=== PATIENT | male | born 1960 | race Caucasian/White ===

== ENCOUNTER 2016-11-17 15:24 | Inpatient (IN) | payer OTHER, MEDICARE ==
[~2016-11-17] VITALS: Ht 175.3 cm; Wt 65.0 kg
[2016-11-17] VITALS (11 sets, daily range): BP systolic 96–215; BP diastolic 7–93; PULSE 96–117; RESP 12–24; TEMP 99.1; O2SAT 66–100
[~2016-11-17 15:24] MED LIST: CALCIUM CHLORIDE 10% SOLN 1 GRAM/10 ML SYR IV ONE; EPINEPHrine HCL (1:10,000) 1 MG/10 ML SYRINGE IV ONE; SODIUM BICARBONATE 8.4% INJ 50 MEQ/50 ML SYR IV ONE
[2016-11-17] MEDS ORDERED: DOPamine INJ PREMIX 500 ML ONE (15:35)
[2016-11-17 15:41] LABS: HEMATOCRIT 36.6 % (39.0-51.0); MEAN CELL VOLUME 93.2 FL (80.0-100.0); MEAN CORPUSCULAR HEMOGLOBIN 30.7 PG (27.0-34.0); MEAN CORPUSCULAR HGB CONC 32.9 % (32.0-36.0); PLATELET COUNT 272 TH/MM3 (150-450); RED BLOOD COUNT 3.93 MIL/MM3 (4.50-5.90); RED CELL DISTRIBUTION WIDTH 14.9 % (11.6-17.2); WHITE BLOOD COUNT 17.5 TH/MM3 (4.0-11.0)
[2016-11-17 15:43] LABS: CHLORIDE 99 MEQ/L (98-107); HEMO FLAGS AUTO DIFF; SODIUM (NA) 130 MEQ/L (136-145)
[2016-11-17] MEDS ORDERED: SODIUM CHLOR 0.9% 1000 ML INJ 1,000 ML IV ONE ×2 (15:45→16:00)
[2016-11-17 15:46] LABS: ANION GAP 17 MEQ/L (5-15); BICARBONATE 13.9 MEQ/L (21.0-32.0); BLOOD UREA NITROGEN 44 MG/DL (7-18)
[2016-11-17 15:47] LABS: APTT (PATIENT) 36.9 SEC (24.3-30.1); INTERNATIONAL NORMALIZED RATIO 1.1 RATIO
[2016-11-17 15:49] LABS: GLOMERULAR FILTRATION RATE 7 ML/MIN (>89); POTASSIUM 5.2 MEQ/L (3.5-5.1)
[2016-11-17 15:52] LABS: CREATINE KINASE 188 U/L (39-308)
[2016-11-17 16:05] LABS: CKMB 2.3 NG/ML (0.5-3.6)
--- NOTE | 2016-11-17 16:14 | RADRPT ---
EXAM DATE/TIME: 11/17/2016 15:31 [facility] COMPARISON: No previous studies available for comparison. INDICATIONS : Stemi alert. MEDICAL HISTORY : Unobtainable. SURGICAL HISTORY : Unobtainable. ENCOUNTER: Initial ACUITY: 1 day PAIN SCORE: Non-responsive. LOCATION: Bilateral chest FINDINGS: ET tube is in good position. Sternal wires are noted. The heart is minimally large. Mild interstit ial edema is present. The portion of the bony skeleton visualized is unremarkable. CONCLUSION: Previous bypass, cardiomegaly with mild interstitial edema suggesting congestive failure. Jason Sullivan MD FACR on November 17, 2016 at 16:11 Board Certified Radiologist. This report was verified electronically.
--- NOTE | 2016-11-17 16:18 | PD ---
HPI Chief Complaint: STEMI Alert Time Seen by Provider: 15:28 Travel History International Travel<30 days: No Contact w/Intl Traveler<30days: No History of Present Illness HPI This is a Kilo Mendes who was found to be unresponsive by EVAC in agonal breathing and was found to be bradycardic while lying on his couch. As per EVAC, pt was then in PEA arrest and a total of 2 epinephrine given before they got ROSC. Pt was intubated by EVAC and had bilateral and equal breath sounds on arrival. Pt was later found to be a dialysis pt who last had his hemodialysis on Thursday and significant other who came later said he has not been feeling well and had trouble breathing. Pt was in sinus tachycardia and found to have ST segment elevation in V2-V4 and STEMI alert was called. Pt was unresponsive without any sedation. Pupils were fixed and unreactive to light bilaterally. 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 Mcmillan (assistant loan processor). [facility] Social History Tobacco Use: No Allergies-Medications (Allergen,Severity, Reaction): Coded Allergies: Advil (Verified Allergy, Severe, Numbness, 11/17/16) Haldol (Verified Allergy, Severe, Psychosis, 11/17/16) Review of Systems ROS Limitations: Unresponsive Physical Exam Narrative GENERAL: Middle age male unresponsive. SKIN: Focused skin assessment warm/dry. HEAD: Atraumatic. Normocephalic. EYES: Pupils equal at 5mm and unreactive to light bilaterally. ENT: No nasal bleeding or discharge. Mucous membranes pink and moist. NECK: Left neck hematoma. EVAC had attempted EJ IV placement. CARDIOVASCULAR: Tachycardic. RESPIRATORY: Intubated. Breath sounds equal bilaterally. GASTROINTESTINAL: Abdomen soft, nondistended. MUSCULOSKELETAL: Right elbow deformity. NEUROLOGICAL: Unresponsive and not on any sedation. Intubated. Pupils unreactive to light. Data Data Last Documented VS Vital Signs Date Time Temp Pulse Resp B/P Pulse Ox O2 Delivery O2 Flow Rate FiO2 11/17/16 16:00 96 20 117/66 90 Ventilator 11/17/16 15:[address] Brain W/O Iv Contrast(Rout) (11/17/16 ) Chest, Single Ap (11/17/16 ) Complete Blood Count With Diff (11/17/16 15:30) Basic Metabolic Panel (Bmp) (11/17/16 15:30) Troponin I (11/17/16 15:30) Prothrombin Time / Inr (Pt) (11/17/16 15:30) Act Partial Throm Time (Ptt) (11/17/16 15:30) Ckmb (Isoenzyme) Profile (11/17/16 15:30) Sodium Chlor 0.9% 1000 Ml Inj (Ns 1000 M (11/17/16 15:45) Dopamine Inj Premix (Dopamine Inj Premix (11/17/16 15:35) Epinephrine (1:1000) Inj (Adrenalin (1:1 (11/17/16 18:00) Sodium Chlor 0.9% 1000 Ml Inj (Ns 1000 M (11/17/16 16:00) CKMB (11/17/16 15:20) CKMB% (11/17/16 15:20) Labs Laboratory Tests Test 11/17/16 15:20 White Blood Count 17.5 TH/MM3 Red Blood Count 3.93 MIL/MM3 Hemoglobin 12.0 GM/DL Hematocrit 36.6 % Mean Corpuscular Volume 93.2 FL Mean Corpuscular Hemoglobin 30.7 PG Mean Corpuscular Hemoglobin 32.9 % Concent Red Cell Distribution Width 14.9 % Platelet Count 272 TH/MM3 Mean Platelet Volume 8.1 FL Neutrophils (%) (Auto) % Lymphocytes (%) (Auto) % Monocytes (%) (Auto) % Eosinophils (%) (Auto) % Basophils (%) (Auto) % Neutrophils # (Auto) TH/MM3 Lymphocytes # (Auto) TH/MM3 Monocytes # (Auto) TH/MM3 Eosinophils # (Auto) TH/MM3 Basophils # (Auto) TH/MM3 CBC Comment AUTO DIFF Differential Total Cells 100 Counted Neutrophils % (Manual) 62 % Band Neutrophils % 8 % Lymphocytes % 19 % Monocytes % 5 % Eosinophils % 2 % Neutrophils # (Manual) 13.0 TH/MM3 Metamyelocytes 4 % Differential Comment FINAL DIFF MANUAL Atypical Lymphocytes % Platelet Estimate NORMAL Platelet Morphology Comment NORMAL Red Cell Morphology Comment NORMAL Prothrombin Time 12.0 SEC Prothromb Time International 1.1 RATIO Ratio Activated Partial 36.9 SEC Thromboplast Time Sodium Level 130 MEQ/L Potassium Level 5.2 MEQ/L Chloride Level 99 MEQ/L Carbon Dioxide Level 13.9 MEQ/L Anion Gap 17 MEQ/L Blood Urea Nitrogen 44 MG/DL Creatinine 6.50 MG/DL Estimat Glomerular Filtration 7 ML/MIN Rate Random Glucose 235 MG/DL Calcium Level 7.7 MG/DL Total Creatine Kinase 188 U/L Creatine Kinase MB 2.3 NG/ML Troponin I 0.05 NG/ML [facility] Medical Decision Making Medical Screen Exam Complete: Yes Emergency Medical Condition: Yes Differential Diagnosis STEMI vs. PE vs. ICH vs. CVA vs. Hyperkalemia Narrative Course Middle age male with ESRD on HD here post cardiac arrest found to have anterior STEMI. Pt had a right tibia IO and peripheral IV in left hand. Pt was initially a Kilo Mendes so no assistant loan processor was known and STEMI alert was called and discussed case with Dr. Grimes. He accepted the patient but wanted to do a CT brain first to make sure that there is no bleed. Pt was at CT scan when his blood pressure dropped and we lost pulses and started CPR. 1 epinephrine was given and ROSC was obtained. Since we found out that pt was a dialysis patient, he was also given calcium chloride and sodium bicarb to treat potential hyperkalemia as a cause of arrest. Pt also had a episode of bowel movement while in CT scan. Pt was initially placed on dopamine drip while waiting for the epinephrine drip and then was changed to epinephrine drip once it became available. Epinephrine drip was started through right tibia IO. Pt' s pulse oximetry was low in the 80s even though he had bilateral breath sounds that were equal so PEEP was increased to 8. FiO2 is 100%. CXR was reviewed by me and I did not see any pneumothorax and ET tube was in good position above susan and there was no deviation of trachea. Official CXR showed previous bypass, cardiomegaly with mild interstitial edema suggesting congestive failure. CT brain reviewed by me and I do not see any intracranial hemorrhage. Official CT scan later showed no evidence of acute infarct, hemorrhage or edema. I discussed with Dr. Grimes again and we agreed to hold heparin and will transfer pt emergently to [place] label folder and he will decide if pt is stable enough for cardiac cath when he arrives or to start hypothermia protocol instead. I found out from family members who arrived later that pt's assistant loan processor is Dr. Mcmillan. I called Dr. Mcmillan to update him but he is not clearing distribution clerk today and Dr. Thayer is clearing distribution clerk instead so will page him and update him. I also discussed with Dr. Thayer to informed him of Dr. Mcmillan's patient. Sales Representative [employer] also paged but Dr. Casas said he already knows about the patient. Labs reviewed, leukocytosis at 17.5. H/H 12/36.6. K: 5.2, slightly hemolyzed. Troponin 0.05. Glucose 235. Calcium low at 7.7. BUN/creatinine 44 /6.50, pt is on hemodialysis. Pt was accompanied by his nurse during emergent transfer to cardiac label folder in [facility] and on an epinephrine drip. Critical Care Narrative Aggregate critical care time was 50 minutes. Time to perform other separately billable procedures was not included in the critical care time. My time did not include minutes spent treating any other patients simultaneously or on activities that did not directly contribute to the patient's treatment. The services I provided to this patient were to treat and/or prevent clinically significant deterioration that could result in: cardiovascular collapse or . I provided critical care services requiring my management, as noted below: Chart data review, documentation time, medication orders and management, vital sign assessments/reviewing monitor data, ordering and reviewing lab tests, ordering and interpreting/reviewing x-rays and diagnostic studies, care of the patient and discussion of the patient with the admitting physicians. Diagnosis Primary Impression: STEMI (ST elevation myocardial infarction) Qualified Code: I21.3 - ST elevation myocardial infarction (STEMI), unspecified artery Admitting Information Admitting Physician Requests: it Oma Romero DO Nov 17, 2016 16:18
[2016-11-17 16:31] LABS: BANDS 8 % (0-6); EOSINOPHILS 2 % (0-4); METAMYELOCYTES 4 % (0-1); POLYS (SEG NEUTROPHILS) 62 % (16-70); WBC DIFF SAMPLE 100
[2016-11-17 16:33] LABS: PLATELET ESTIMATE SMEAR NORMAL (NORMAL); PLATELET MORPHOLOGY NORMAL (NORMAL); SCAN/DIFF FINAL DIFF MANUAL
--- NOTE | 2016-11-17 16:52 | RADRPT ---
EXAM DATE/TIME: 11/17/2016 15:31 [facility] COMPARISON: No previous studies available for comparison. INDICATIONS : Stemi alert. Altered mental status. Unresponsive. RADIATION DOSE: 63.57 CTDIvol (mGy) MEDICAL HISTORY : Non-responsive. SURGICAL HISTORY : Non-responsive. ENCOUNTER: Initial ACUITY: 1 day PAIN SCALE: Non-responsive LOCATION: cranial TECHNIQUE: Multiple contiguous axial images were obtained of the head. Using automated exposure control and adj ustment of the mA and/or kV according to patient size, radiation dose was kept as low as reasonably a chievable to obtain optimal diagnostic quality images. DICOM format image data is available electro nically for review and comparison. FINDINGS: CEREBRUM: The ventricles are normal for age. No evidence of midline shift, mass lesion, hemorrhage or acute in farction. No extra-axial fluid collections are seen. POSTERIOR FOSSA: The cerebellum and brainstem are intact. The 4th ventricle is midline. The cerebellopontine angle i s unremarkable. EXTRACRANIAL: The visualized portion of the orbits is intact. SKULL: The calvaria is intact. No evidence of skull fracture. CONCLUSION: No evidence of acute infarct, hemorrhage, mass or edema. Immanuel Santos MD on November 17, 2016 at 16:49 Board Certified Radiologist. This report was verified electronically.
[2016-11-17] MEDS ORDERED: EPINEPHrine (1:1000) INJ 2 MG in DEXTROSE 5% IN WATER INJ 248 ML IV SCH ×2 (18:00)
[2016-11-17 18:05] LABS: HEMATOCRIT 36.5 % (39.0-51.0); MEAN CORPUSCULAR HEMOGLOBIN 31.3 PG (27.0-34.0); MEAN CORPUSCULAR HGB CONC 32.9 % (32.0-36.0); PLATELET COUNT 263 TH/MM3 (150-450); RED BLOOD COUNT 3.85 MIL/MM3 (4.50-5.90); RED CELL DISTRIBUTION WIDTH 15.2 % (11.6-17.2); REVIEW FLAG FINAL; WHITE BLOOD COUNT 14.3 TH/MM3 (4.0-11.0)
--- NOTE | 2016-11-17 18:11 | HHI.HP ---
HPI Service Critical Care Medicine Primary Care Physician Allegra Goldman MD Admission Diagnosis STEMI, post cardiac arrest Diagnosis: Travel History International Travel<30 Days: No Contact w/Intl Traveler <30 Da: No Traveled to Known Affected Are: No History of Present Illness HPI This is a Kilo Mendes who was found to be unresponsive by EVAC in agonal breathing and was found to be bradycardic while lying on his cough. As per EVAC, pt was then in PEA arrest and a total of 2 epinephrine given before they got ROSC. Pt was intubated by EVAC and had bilateral and equal breath sounds on arrival. Pt was later found to be a dialysis pt who last had his hemodialysis on Thursday and significant other who came later said he has not been feeling well and had trouble breathing. Pt was in sinus tachycardia and found to have ST segment elevation in V2-V4 and STEMI alert was called. Pt was unresponsive without any sedation. Pupils were fixed and unreactive to light bilaterally. 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 The patient was transported to [facility] as a STEMI alert, seen by Dr. Grimes. The patient was deemed not a candidate for cardiac catheterization nor cooling secondary to unwitnessed initial arrest for unknown duration of time. Critical care medicine was consulted. The patient was transferred to CVICU on epinephrine infusion. Upon admission the patient was noted to have agonal respirations pupils fixed, nonresponsive to painful stimuli. Allergies-Medications (Allergen,Severity, Reaction): Coded Allergies: UNOBTAINABLE (Unverified , 11/17/16) Review of Systems ROS Limitations: Unresponsive Review of Systems ROS Limitations: Clinical Condition Past Family Social History Allergies: Coded Allergies: Advil (Verified Allergy, Severe, Numbness, 11/17/16) Haldol (Verified Allergy, Severe, Psychosis, 11/17/16) Past Medical History Unable to obtain Past Surgical History Right partial foot amputation, left upper extremity AV graft Reported Medications see MAR Active Ordered Medications see MAR Family History Unable to obtain secondary to intubation and clinical condition Social History Unable to obtain Physical Exam Vital Signs Vital Signs Date Time Temp Pulse Resp B/P Pulse Ox O2 Delivery O2 Flow Rate FiO2 11/17/16 17:30 99 Mechanical Ventilator 90 11/17/16 17:24 90 11/17/16 16:00 96 20 117/66 90 Ventilator 11/17/16 15:55 102 20 160/77 Ventilator 11/17/16 15:50 109 20 183/83 82 Ventilator 11/17/16 15:35 117 24 96/47 88 Ventilator 11/17/16 15:30 100 11/17/16 15:30 66 100 11/17/16 15:25 117 24 215/93 82 Ventilator 11/17/16 15:20 82 100 Physical Exam GENERAL: Critically ill-appearing male with mild myoclonic jerks SKIN: Warm and dry. HEAD: Atraumatic. Normocephalic. EYES: Pupils equal and round, nonreactive. No scleral icterus. No injection or drainage. ENT: No nasal bleeding or discharge. Mucous membranes pink and moist. NECK: Trachea midline. No JVD. CARDIOVASCULAR: Normal rate, regular rhythm. Telemetry-sinus rhythm RESPIRATORY: No accessory muscle use. Clear to auscultation. Breath sounds equal bilaterally. Agonal respirations GASTROINTESTINAL: Abdomen soft, non-tender, nondistended. No guarding. MUSCULOSKELETAL: Extremities without clubbing, cyanosis, or edema. No obvious deformities. Left upper extremity AV graft with bruit and thrill NEUROLOGICAL: GCS 3 T. unresponsive. No withdrawal to pain Laboratory Laboratory Tests Test 11/17/16 15:20 White Blood Count 17.5 Red Blood Count 3.93 Hemoglobin 12.0 Hematocrit 36.6 Mean Corpuscular Volume 93.2 Mean Corpuscular Hemoglobin 30.7 Mean Corpuscular Hemoglobin 32.9 Concent Red Cell Distribution Width 14.9 Platelet Count 272 Mean Platelet Volume 8.1 Neutrophils (%) (Auto) Lymphocytes (%) (Auto) Monocytes (%) (Auto) Eosinophils (%) (Auto) Basophils (%) (Auto) Neutrophils # (Auto) Lymphocytes # (Auto) Monocytes # (Auto) Eosinophils # (Auto) Basophils # (Auto) CBC Comment AUTO DIFF Differential Total Cells 100 Counted Neutrophils % (Manual) 62 Band Neutrophils % 8 Lymphocytes % 19 Monocytes % 5 Eosinophils % 2 Neutrophils # (Manual) 13.0 Metamyelocytes 4 Differential Comment FINAL DIFF MANUAL Atypical Lymphocytes Platelet Estimate NORMAL Platelet Morphology Comment NORMAL Red Cell Morphology Comment NORMAL Prothrombin Time 12.0 Prothromb Time International 1.1 Ratio Activated Partial 36.9 Thromboplast Time Sodium Level 130 Potassium Level 5.2 Chloride Level 99 Carbon Dioxide Level 13.9 Anion Gap 17 Blood Urea Nitrogen 44 Creatinine 6.50 Estimat Glomerular Filtration 7 Rate Random Glucose 235 Calcium Level 7.7 Total Creatine Kinase 188 Creatine Kinase MB 2.3 Troponin I 0.05 Result Diagram: 11/17/16 1520 11/17/16 1520 Imaging Last Impressions Head CT 11/17/16 0000 Signed Impressions: Service Date/Time: Thursday, November 17, 2016 15:31 - CONCLUSION: No evidence of acute infarct, hemorrhage, mass or edema. Immanuel Santos MD Chest X-Ray 11/17/16 0000 Signed Impressions: Service Date/Time: Thursday, November 17, 2016 15:31 - CONCLUSION: Previous bypass , cardiomegaly with mild interstitial edema suggesting congestive failure. Jason Sullivan MD FACR Septic Shock Reassessment Lungs: Crackles Peripheral Pulses: Bounding Right Radial Bounding Left Radial Assessment and Plan Assessment and Plan Assessment Postcardiac arrest (Unwitnessed) PEA arrest Anoxic brain injury ? End-stage renal disease Bandemia Leukocytosis Plan Plan by systems: Neurologic: -Obtain stat EEG -Neurology consulted -Urine tox screen -Obtain Tylenol level -11/17 CT brain-no acute infarct Respiratory: -Mechanical ventilation maintain sat greater than 92% currently on /6 FiO2 100% -Obtain ABG -Wean FiO2 to maintain O2 sat greater than 92% -Ventilator bundle -Bronchodilators Cardiovascular: -Cardiology Dr. Grimes- patient deemed not a candidate for heart catheterization nor hypothermic cooling -Epinephrine infusion, weaned to maintain a MAP greater than 65mmHG -Follow-up troponin levels -Initiate heparin infusion Renal: -Nephrology consult, hemodialysis per nephrology -Bladder scan -- Strict I/Os FEN/GI: -Obtain stat CMP -Monitor electrolytes -Gentle hydration normal saline at 42 cc/hour -Obtain creatinine kinase level -Insert OGT, LIWS -Zofran for nausea -Pepcid GI prophylaxis Heme/ID: -Blood cultures 2 - Urine Culture if possible -Obtain sputum culture -Obtain /trend Lactic acid levels -Empiric antibiotics instituted vancomycin and cefepime Endocrine: Glucose monitoring per ICU protocol -- SSI Prophylaxis: GI Prophylaxis Pepcid twice a day DVT Prophylaxis -- SCDs Lines: Peripheral IVs 2 Dispo: This patient remains critically ill with one or more organ systems which are or may become a threat to life. I have spent in excess of 35 minutes discontinuously in the care and management of this patient. This time is exclusive of procedures, and includes, but is not limited to, evaluation of the patient, review of the medical record, discussions with family, consultants, nursing staff, or respiratory therapy, and documentation in the medical record. Code Status FULL Discussed Condition With Dr. Grimes, Family and REGIONAL COORDINATOR at bedside Dai Curry MD Nov 17, 2016 18:11
[2016-11-17] MEDS: SODIUM CHLOR 0.9% 1000 ML INJ 1,000 ML IV SCH (18:12)
[2016-11-17] MEDS ORDERED: CHLORHEXIDINE GLUCONATE 2 % 1 PACK (2 CLOTHS) TOP PRN (18:15)
[2016-11-17] MEDS ORDERED: SODIUM CHLORIDE 0.9% FLUSH 10 ML FLUSH IV FLUSH PRN ×2 (18:15→19:30)
[2016-11-17] MEDS ORDERED: RESP: ALBUTEROL 2.5 MG/IPRATROPIUM 0.5 MG NEB (PRN) INH (18:15)
[2016-11-17] MEDS ORDERED: MISCELLANEOUS NURSING INFORMATION XX SCH (18:15)
[2016-11-17] MEDS ORDERED: LACTULOSE SYRUP 20 GM/30 ML CUP PO PRN (18:15)
[2016-11-17] MEDS ORDERED: HEPARIN-D5W INJ 250 ML IV SCH (18:15)
[2016-11-17 18:27] LABS: ACETAMINOPHEN 7.3 MCG/ML (10.0-30.0); ALT (GPT) 38 U/L (12-78); ANION GAP 17 MEQ/L (5-15); AST (GOT) 37 U/L (15-37); BICARBONATE 17.8 MEQ/L (21.0-32.0); BLOOD UREA NITROGEN 43 MG/DL (7-18); CHLORIDE 96 MEQ/L (98-107); GLOMERULAR FILTRATION RATE 9 ML/MIN (>89); MAGNESIUM 2.7 MG/DL (1.5-2.5); POTASSIUM 4.7 MEQ/L (3.5-5.1); SODIUM (NA) 131 MEQ/L (136-145)
[2016-11-17 18:30] LABS: ALKALINE PHOSPHATASE 110 U/L (45-117); TOTAL BILIRUBIN ADULT 0.6 MG/DL (0.2-1.0)
[2016-11-17] MEDS ORDERED: Vancomycin Consult Pharmacy 1 EA OTHER SCH (18:30)
[2016-11-17 18:40] LABS: INTERNATIONAL NORMALIZED RATIO 1.1 RATIO; PROTHROMBIN TIME - PATIENT 12.5 SEC (9.8-11.6)
[2016-11-17] MEDS ORDERED: VANCOMYCIN 1,000 MG/NS 250 ML IV ONE ×2 (19:00)
[2016-11-17] MEDS ORDERED: ACETAMINOPHEN 325 MG TAB PO PRN ×2 (19:00→19:30)
[2016-11-17] MEDS ORDERED: BISACODYL 10 MG SUPP RECTAL PRN (19:00)
[2016-11-17] MEDS ORDERED: SODIUM BICARBONATE 8.4% INJ 50 ML ONE (19:06)
[2016-11-17] MEDS ORDERED: CISATRACURIUM BESYLATE 200 MG/20 ML VIAL IV ONE ×2 (19:15→19:30)
[2016-11-17] MEDS ORDERED: SODIUM BICARBONATE 8.4% INJ 50 MEQ/50 ML SYR IV PUSH ONE (19:15)
[2016-11-17] MEDS ORDERED: DEXTROSE 50% IN WATER 50 ML VIAL(D50) IV PUSH PRN (19:15)
[2016-11-17 19:17] LABS: APTT (PATIENT) 33.6 SEC (24.3-30.1)
[2016-11-17] MEDS ORDERED: SODIUM CHLOR 0.9% 1000 ML INJ 1,000 ML IV PRN ×3 (19:25)
[2016-11-17 19:26] LABS: AMPHETAMINE, URINE NEG (NEG); BARBITURATES, URINE NEG (NEG); COCAINE, URINE NEG (NEG)
--- NOTE | 2016-11-17 19:26 | PD.PROCEDR ---
Procedure Note Procedure Procedure: Arterial Line Placement Status post STEMI Diagnosis: Cardiac arrest Indications: Same Consent: Emergent Description of the Procedure: The right wrist was prepped and draped sterilely. 1% lidocaine was used for local anesthesia. The pulse was located and a needle was advanced into the artery. A 20-gauge gauge, 1.34cm catheter was advanced into the artery using a modified Seldinger technique. The catheter was sutured to the skin and a sterile dressing was applied. The catheter was connected to a pressure transducer and an arterial waveform was noted. There were no immediate complications noted. There was minimal EBL. I personally performed the procedure. Dai Curry MD Nov 17, 2016 19:26
[2016-11-17] MEDS ORDERED: MANNITOL 12.5 GM/50 ML VIAL IV PRN (19:30)
[2016-11-17] MEDS ORDERED: NITROGLYCERIN 0.4 MG SL 25 TABS/BTL SL PRN (19:30)
[2016-11-17] MEDS ORDERED: ALBUMIN HUMAN 25% 25 GM/100 ML BAGP IV PRN (19:30)
[2016-11-17] MEDS ORDERED: ONDANSETRON HCL 4 MG/2 ML VIAL IV PRN (19:30)
[2016-11-17] MEDS ORDERED: cloNIDine HCL 0.1 MG TAB PO PRN (19:30)
[2016-11-17] MEDS ORDERED: diphenhydrAMINE HCL 25 MG CAP PO PRN (19:30)
[2016-11-17] MEDS ORDERED: GENTAMICIN SULFATE (DIALYSIS USE ONLY) 20 MG/2 ML VIAL IV PRN (19:30)
[2016-11-17] MEDS ORDERED: HEPARIN SODIUM - IV 10,000 UNITS/10 ML VIAL PRN (19:30)
[2016-11-17] MEDS ORDERED: HEPARIN SODIUM - IV 10,000 UNITS/10 ML VIAL IVF PRN (19:30)
[2016-11-17] MEDS ORDERED: GELATIN 12 MM/7 MM FOAM TOP PRN (19:30)
[2016-11-17 19:53] LABS: LACTIC ACID GHOST NOT REPORTABLE
[2016-11-17] MEDS: INSULIN NovoLIN REGULAR SUPPLEMENTAL SCALE SQ SCH (20:30)
[2016-11-17] MEDS: RESP: ALBUTEROL 2.5 MG/IPRATROPIUM 0.5 MG NEB (SCH) INH (20:57)
[2016-11-17 20:59] LABS: CREATINE KINASE 159 U/L (39-308)
[2016-11-17] MEDS: DOCUSATE SODIUM 50 MG/SENNA 8.6 MG TAB PO SCH (21:00)
[2016-11-17] MEDS ORDERED: SENNOSIDES 8.6 MG TAB PO PRN (21:00)
[2016-11-17] MEDS ORDERED: MAGNESIUM HYDROXIDE SUSP 30 ML CUP PO PRN (21:00)
[2016-11-17 21:34] LABS: BLOOD GAS CARBOXYHEMOGLOBIN 1.2 % (0-4); BLOOD GAS HCO3 15 mmol/L (22-26); BLOOD GAS METHEMOGLOBIN 1.7 % (0-2); BLOOD GAS O2 HGB SATURATION 96 % (90-100); BLOOD GAS OXYGEN CONTENT 14.7 Vol % (12.0-20.0); BLOOD GAS PCO2 29 mmHg (38-42); BLOOD GAS PO2 207 mmHg (61-120); BLOOD GAS TOTAL HGB 10.5 G/DL (12.0-16.0); TEMP CORR TO 98.6
[2016-11-17 21:35] LABS: CRITICAL VALUE YES; DRAW SITE ART LINE; FIO2 70 %; OXYGEN DEVICE VENTILATOR; STAT NO; VENT SETTINGS 500/12/PEEP 6
[2016-11-17] MEDS: CEFEPIME INJ 2,000 MG in SODIUM CHLORIDE 0.9% INJ 100 ML IV SCH (21:57)
[2016-11-17] MEDS: SODIUM BICARBONATE 8.4% INJ 150 MEQ in SODIUM CHLOR 0.9% 1000 ML INJ 850 ML IV SCH (21:58)
[2016-11-17] MEDS: CHLORHEXIDINE 0.12% (ORAL KIT) 15 ML CUP MT SCH (21:58)
[2016-11-17] MEDS: FAMOTIDINE 20 MG/2 ML VIAL IV PUSH SCH (22:43)
[2016-11-17] MEDS: SODIUM CHLORIDE 0.9% FLUSH 10 ML FLUSH IV FLUSH SCH (22:43)
[2016-11-17] MEDS ORDERED: NITROGLYCERIN 2% OINT 1 GM PACKET TOPICAL PRN (23:30)
[2016-11-17] MEDS ORDERED: LABETALOL HCL 100 MG/20 ML VIAL IV PUSH PRN (23:30)
[2016-11-17] MEDS ORDERED: fentaNYL DRIP 250 ML IV SCH (23:30)
[2016-11-18] VITALS (13 sets, daily range): BP systolic 115–175; BP diastolic 54–83; PULSE 72–93; RESP 14–31; TEMP 99.9–102.1; O2SAT 95–99
[2016-11-18] MEDS: PROPOFOL 1000 MG/100 ML INJ 100 ML IV SCH ×5 (00:06→23:41)
[2016-11-18 02:28] LABS: APTT (PATIENT) 46.3 SEC (24.3-30.1)
[2016-11-18] MEDS: INSULIN NovoLIN REGULAR SUPPLEMENTAL SCALE SQ SCH ×4 (03:00→19:15)
[2016-11-18] MEDS: CHLORHEXIDINE GLUCONATE 2 % 1 PACK (2 CLOTHS) TOP SCH (03:05)
[2016-11-18] MEDS: RESP: ALBUTEROL 2.5 MG/IPRATROPIUM 0.5 MG NEB (SCH) INH ×4 (03:32→21:58)
--- NOTE | 2016-11-18 05:07 | RADRPT ---
EXAM DATE/TIME: 11/18/2016 04:02 [facility] COMPARISON: CHEST SINGLE AP, November 17, 2016, 15:31. INDICATIONS : Respiratory disease. MEDICAL HISTORY : Unobtainable. SURGICAL HISTORY : Unobtainable. ENCOUNTER: Subsequent ACUITY: 2 days PAIN SCORE: Non-responsive. LOCATION: Bilateral chest FINDINGS: Aeration of both lungs though persistent consolidation remains in the left lower lobe and right lung base. Median sternotomy wires are noted, cardiomegaly. Endotracheal tube in satisfactory position. NG tube side-port at the distal esophagus, distal tip at the esophagogastric junction. There is nodular consolidation at the right lower lobe and a 1.7 cm nodule is present. CONCLUSION: Bilateral consolidation decreased since the previous study. Right lung base nodule suspected. NG tube should be advanced. Garry Dykes MD on November 18, 2016 at 5:04 Board Certified Radiologist. This report was verified electronically.
[2016-11-18 05:18] LABS: BLOOD GAS BASE EXCESS -3.9 mmol/L (-2-2); BLOOD GAS CARBOXYHEMOGLOBIN 1.4 % (0-4); BLOOD GAS HCO3 19 mmol/L (22-26); BLOOD GAS METHEMOGLOBIN 1.7 % (0-2); BLOOD GAS O2 HGB SATURATION 95 % (90-100); BLOOD GAS OXYGEN CONTENT 13.4 Vol % (12.0-20.0); BLOOD GAS PCO2 28 mmHg (38-42); BLOOD GAS PO2 121 mmHg (61-120); BLOOD GAS TOTAL HGB 9.9 G/DL (12.0-16.0); CRITICAL VALUE NO; DRAW SITE ART LINE; FIO2 30 %; OXYGEN DEVICE VENTILATOR; STAT NO; TEMP CORR TO 98.6; VENT SETTINGS PRVC/AC
[2016-11-18 05:45] LABS: BICARBONATE 22.8 MEQ/L (21.0-32.0); MAGNESIUM 2.3 MG/DL (1.5-2.5); POTASSIUM 4.3 MEQ/L (3.5-5.1)
[2016-11-18 06:31] LABS: CKMB 18.4 NG/ML (0.5-3.6)
--- NOTE | 2016-11-18 06:53 | MB ---
cc: ROSITA LIVINGSTON DATE OF CONSULTATION 11/17/2016 INDICATION Cardiac arrest HISTORY OF PRESENT ILLNESS This is an unknown male who presented to the emergency department in [place] after his found him at home unresponsive on the couch. The patient essentially had an unwitnessed arrest. He was down for an unknown period time, came home and noted that he was seen to be in somewhat of an agonal type breathing and called EVAC. Upon EMS arrival, he was noted to be in PEA arrest, was given epinephrine and they were able to get a pulse. The patient had no spontaneous movements. He was intubated. Apparently he has history of end-stage renal disease on hemodialysis, had not been feeling well up until recently. His electrocardiogram did show some poor R-wave progression with some ST elevation in the early precordial leads. He went through the CT scan of the head at [place] which was unremarkable, but he is not withdrawing to any painful stimuli. His pupils were fixed and dilated nonreactive to light. Because of the electrocardiogram, he was sent over for consideration of revascularization. PAST HISTORY Unknown ALLERGIES Unknown REVIEW OF SYSTEMS Unresponsive PHYSICAL EXAMINATION The patient is intubated, unresponsive, pupils are dilated and fixed. CARDIOVASCULAR: Tachycardia. No rubs or gallops. RESPIRATORY: Equal bilaterally. ABDOMEN: Exam is soft. NEUROLOGIC: Does not withdraw to painful stimuli. No spontaneous movements. LABS WBC 17.5, hemoglobin 12, platelet count 272, INR is 1. Sodium 130, potassium 5.2, BUN is 44, creatinine 6.5, troponin 0.05. ASSESSMENT 1. PEA arrest 2. Questionable ST-elevation PA 3. End-stage renal disease. The patient is currently in critical condition. Neurologically appears to have severe anoxic brain injury without any spontaneous movements. Does not withdraw to painful stimuli. In the CT scanner at [place], he had another hypotensive episode with an episode of hypoxia. At this point, I do not think cardiac catheterization is going to alter the course of this gentleman's recovery since his electrocardiogram is not classic for tombstone ST elevation and his major limiting factor is going to be neurologic recovery. I discussed the case with Dr. Curry the signal constructor. He does not appear to be a candidate for hypothermia protocol. For right now, we will continue with supportive measures, have a talk with the family and watch over the next 24 hours for any neurologic recovery. We will also get neurology involved for EEG to see if there is documented anoxic injury. MD ALEXANDRIA Ortiz/LEA /4:56 PM /6:39 AM
[2016-11-18] MEDS: CHLORHEXIDINE 0.12% (ORAL KIT) 15 ML CUP MT SCH ×4 (08:00→23:36)
--- NOTE | 2016-11-18 08:33 | MG ---
cc: KRISTAL GONSALEZ M.D. Lab No: Date: 11/17/2016 Age: 56 Sex: M Race: ___ INDICATIONS A stat EEG was obtained on this 56-year-old. The patient is intubated. No sedation. The Nimbex was given 3-4 minutes into the EEG for muscle and head movement. DESCRIPTION The EEG initially shows a lot of muscle artifact with an occasional bursts of high amplitude theta/delta activity maximum anteriorly. As the patient became quieter, after the Nimbex, head rocking movement is still described and the background is then represented by markedly low amplitude activity with very occasional bursts of activity lasting a second or so. It might take over a minute before another burst of activity is noted. Photic stimulation disclosed no significant change. INTERPRETATION Markedly abnormal EEG because of rare bursts of higher amplitude delta and theta activity maximum frontally superimposed in a background of markedly low amplitude rhythms. After Nimbex was given, the muscle artifact had dissipated. The EEG findings suggest a markedly severe diffuse disturbance of cerebral function, possible anoxic brain injury, clinical and imaging correlation. No ictal activity present. I attempted to call the intensive care unit to provide a verbal report, but the reaching the staff was not successful. MD JOSE ANTONIO Peguero/LEA /7:37 PM /8:23 AM
--- NOTE | 2016-11-18 08:38 | PD.CARD.PN ---
Subjective Subjective Remarks Intubated. Sedated. Objective Medications Item Value Date Time Nitroglycerin 2 inch 11/17/160 (Nitroglycerin Q6HR PRN/TOPICAL 2% Oint) Hydralazine HCl 10 mg 11/17/16 2330 (Apresoline Inj) Q1HR PRN/IV PUSH Labetalol HCl 10 mg 11/17/16 2330 (Trandate Inj) Q1HR PRN/IV PUSH Heparin Sodium/ 250 ml @ 0 mls/hr 11/17/16 181 Dextrose TITRATE/IV 11/17/16 183 Vital Signs / I&O Vital Signs Date Time Temp Pulse Resp B/P Pulse Ox O2 Delivery O2 Flow Rate FiO2 11/18/16 04:00 30 11/18/16 04:00 72 11/18/16 04:00 99 Mechanical Ventilator 30 11/18/16 04:00 100.3 72 22 115/63 99 144/66 11/18/16 03:34 99 30 11/18/16 01:30 30 11/18/16 00:30 99 30 11/18/16 00:00 101.1 89 31 174/83 99 175/73 11/18/16 00:00 30 11/18/16 00:00 88 11/18/16 00:00 99 Mechanical Ventilator 30 11/17/16 23:00 30 11/17/16 22:00 50 11/17/16 21:30 60 11/17/16 21:00 70 11/17/16 20:55 100 70 11/17/16 20:00 96 11/17/16 20:00 80 11/17/16 20:00 99 Mechanical Ventilator 80 11/17/16 20:00 99.1 97 12 136/74 99 163/54 11/17/16 19:55 99 80 11/17/16 17:30 99 Mechanical Ventilator 90 11/17/16 17:24 90 11/17/16 16:40 97 100 11/17/16 16:00 96 20 117/66 90 Ventilator 11/17/16 15:55 102 20 160/77 Ventilator 11/17/16 15:50 109 20 183/83 82 Ventilator 11/17/16 15:35 117 24 96/47 88 Ventilator 11/17/16 15:30 100 11/17/16 15:30 66 100 11/17/16 15:25 117 24 215/93 82 Ventilator 11/17/16 15:20 82 100 I/O 11/17/16 11/17/16 11/17/16 11/18/16 11/18/16 11/18/16 07:00 15:00 23:00 07:00 15:00 23:00 Intake Total 1385 ml Output Total 201 ml 135 ml Balance -201 ml 1250 ml Intake Oral 0 ml IV Total 1385 ml Output Urine Total 200 ml 85 ml Stool Total 1 ml Gastric Drainage Total 50 ml # Bowel Movements 1 Physical Exam GENERAL: Well developed, thin. Intubated. Sedated. HEENT: Jugular venous pressure is normal. CHEST: Lungs clear to auscultation anteriorly. CARDIAC: Regular rate and rhythm without S3, S4. I-II/ systolic murmur apex, LLSB. ABDOMEN: Soft, no hepatosplenomegaly. Bowel sounds present. EXTREMITIES: No clubbing, cyanosis, or edema. Laboratory Laboratory Tests Test 11/17/16 11/17/16 11/17/16 11/17/16 15:20 17:45 18:15 20:18 White Blood Count 17.5 TH/MM3 14.3 TH/MM3 Red Blood Count 3.93 MIL/MM3 3.85 MIL/MM3 Hemoglobin 12.0 GM/DL 12.0 GM/DL Hematocrit 36.6 % 36.5 % Mean Corpuscular Volume 93.2 FL 95.0 FL Mean Corpuscular Hemoglobin 30.7 PG 31.3 PG Mean Corpuscular Hemoglobin 32.9 % 32.9 % Concent Red Cell Distribution Width 14.9 % 15.2 % Platelet Count 272 TH/MM3 263 TH/MM3 Mean Platelet Volume 8.1 FL 8.0 FL Neutrophils (%) (Auto) % Lymphocytes (%) (Auto) % Monocytes (%) (Auto) % Eosinophils (%) (Auto) % Basophils (%) (Auto) % Neutrophils # (Auto) TH/MM3 Lymphocytes # (Auto) TH/MM3 Monocytes # (Auto) TH/MM3 Eosinophils # (Auto) TH/MM3 Basophils # (Auto) TH/MM3 CBC Comment AUTO DIFF Differential Total Cells 100 Counted Neutrophils % (Manual) 62 % Band Neutrophils % 8 % Lymphocytes % 19 % Monocytes % 5 % Eosinophils % 2 % Neutrophils # (Manual) 13.0 TH/MM3 Metamyelocytes 4 % Differential Comment FINAL DIFF MANUAL Atypical Lymphocytes % Platelet Estimate NORMAL Platelet Morphology Comment NORMAL Red Cell Morphology Comment NORMAL Prothrombin Time 12.0 SEC 12.5 SEC Prothromb Time International 1.1 RATIO 1.1 RATIO Ratio Activated Partial 36.9 SEC 33.6 SEC Thromboplast Time Sodium Level 130 MEQ/L 131 MEQ/L Potassium Level 5.2 MEQ/L 4.7 MEQ/L Chloride Level 99 MEQ/L 96 MEQ/L Carbon Dioxide Level 13.9 MEQ/L 17.8 MEQ/L Anion Gap 17 MEQ/L 17 MEQ/L Blood Urea Nitrogen 44 MG/DL 43 MG/DL Creatinine 6.50 MG/DL 6.54 MG/DL Estimat Glomerular Filtration 7 ML/MIN 9 ML/MIN Rate Random Glucose 235 MG/DL 280 MG/DL Calcium Level 7.7 MG/DL 8.1 MG/DL Total Creatine Kinase 188 U/L 159 U/L Creatine Kinase MB 2.3 NG/ML Troponin I 0.05 NG/ML Lactic Acid Level 6.0 mmol/L 4.0 mmol/L Phosphorus Level 8.7 MG/DL Magnesium Level 2.7 MG/DL Total Bilirubin 0.6 MG/DL Aspartate Amino Transf 37 U/L (AST/SGOT) Alanine Aminotransferase 38 U/L (ALT/SGPT) Alkaline Phosphatase 110 U/L B-Type Natriuretic Peptide 2504 PG/ML Total Protein 7.1 GM/DL Albumin 3.6 GM/DL Acetaminophen Level 7.3 MCG/ML Urine Opiates Screen NEG Urine Barbiturates Screen NEG Urine Amphetamines Screen NEG Urine Benzodiazepines Screen NEG Urine Cocaine Screen NEG Urine Cannabinoids Screen POS Test 11/17/16 11/17/16 11/18/16 11/18/16 21:20 22:50 01:45 04:30 Blood Gas Puncture Site ART LINE Blood Gas Patient Temperature 98.6 Blood Gas HCO3 15 mmol/L Blood Gas Base Excess -10.0 mmol/L Blood Gas Oxygen Saturation 96 % Arterial Blood pH 7.33 Arterial Blood Partial 29 mmHg Pressure CO2 Arterial Blood Partial 207 mmHg Pressure O2 Arterial Blood Oxygen Content 14.7 Vol % Arterial Blood 1.2 % Carboxyhemoglobin Arterial Blood Methemoglobin 1.7 % Blood Gas Hemoglobin 10.5 G/DL Oxygen Delivery Device VENTILATOR Blood Gas Ventilator Setting 500/12/PEEP 6 Blood Gas Inspired Oxygen 70 % Nasal Screen MRSA (PCR) MRSA NOT DETECTED Activated Partial 46.3 SEC Thromboplast Time Sodium Level 138 MEQ/L Potassium Level 4.3 MEQ/L Chloride Level 100 MEQ/L Carbon Dioxide Level 22.8 MEQ/L Anion Gap 15 MEQ/L Blood Urea Nitrogen 56 MG/DL Creatinine 7.08 MG/DL Estimat Glomerular Filtration 8 ML/MIN Rate Random Glucose 184 MG/DL Calcium Level 7.5 MG/DL Phosphorus Level 4.3 MG/DL Magnesium Level 2.3 MG/DL Total Creatine Kinase 579 U/L Creatine Kinase MB 18.4 NG/ML Creatine Kinase MB % 3.2 % Test 11/18/16 05:10 Blood Gas Puncture Site ART LINE Blood Gas Patient Temperature 98.6 Blood Gas HCO3 19 mmol/L Blood Gas Base Excess -3.9 mmol/L Blood Gas Oxygen Saturation 95 % Arterial Blood pH 7.46 Arterial Blood Partial 28 mmHg Pressure CO2 Arterial Blood Partial 121 mmHg Pressure O2 Arterial Blood Oxygen Content 13.4 Vol % Arterial Blood 1.4 % Carboxyhemoglobin Arterial Blood Methemoglobin 1.7 % Blood Gas Hemoglobin 9.9 G/DL Oxygen Delivery Device VENTILATOR Blood Gas Ventilator Setting PRVC/AC Blood Gas Inspired Oxygen 30 % Assessment and Plan Problem List: (1) CAD (coronary artery disease) Assessment and Plan: History of CABG 2006. Status post probable anterior STEMI yesterday treated conservatively by Dr. Grimes due to poor neurological status. Stable overnight. Repeat EKG pending. Cardiac enzymes suggestive of acute GA. His bypass grafts, including a TABOR to the LAD, were widely patent on cath 2013. REC daily aspirin continue heparin drip check echo beta narciso, TORY-I as BP's tolerate (2) Ischemic cardiomyopathy Assessment and Plan: EF 45% by echo last year. Echo pending. CHF suggested on admission CXR. Rec diuretic therapy. Rec beta narciso, TORY-I as BP's tolerate. Code Status full code Problem Qualifiers (1) CAD (coronary artery disease): Qualified Code: I25.10 - Coronary artery disease involving navajo coronary artery of navajo heart, angina presence unspecified Javier Mcmillan MD Nov 18, 2016 08:38
[2016-11-18 08:41] LABS: APTT (PATIENT) 50.4 SEC (24.3-30.1)
[2016-11-18 08:43] LABS: AUTOMATED NEUTROPHIL # 16.1 TH/MM3 (1.8-7.7); BASOPHIL % 0.1 % (0.0-2.0); HEMATOCRIT 29.5 % (39.0-51.0); HEMO FLAGS DIFF FINAL; LYMPH % 2.4 % (9.0-44.0); LYMPHOCYTE # 0.4 TH/MM3 (1.0-4.8); MEAN CELL VOLUME 92.8 FL (80.0-100.0); MEAN CORPUSCULAR HGB CONC 32.4 % (32.0-36.0); NEUT % 93.5 % (16.0-70.0); PLATELET COUNT 154 TH/MM3 (150-450); RED BLOOD COUNT 3.18 MIL/MM3 (4.50-5.90); RED CELL DISTRIBUTION WIDTH 14.7 % (11.6-17.2); WHITE BLOOD COUNT 17.2 TH/MM3 (4.0-11.0)
[2016-11-18] MEDS: hydrALAZINE HCL 20 MG/ML VIAL IV PUSH PRN (08:43)
[2016-11-18] MEDS ORDERED: PILL SPLITTER OTHER PRN (08:45)
--- NOTE | 2016-11-18 08:53 | HHI.CCPN ---
Subjective Remarks/Hospital Course This is a Kilo Mendes who was found to be unresponsive by EVAC in agonal breathing and was found to be bradycardic while lying on his cough. As per EVAC, pt was then in PEA arrest and a total of 2 epinephrine given before they got ROSC. Pt was intubated by EVAC and had bilateral and equal breath sounds on arrival. Pt was later found to be a dialysis pt who last had his hemodialysis on Thursday and significant other who came later said he has not been feeling well and had trouble breathing. Pt was in sinus tachycardia and found to have ST segment elevation in V2-V4 and STEMI alert was called. Pt was unresponsive without any sedation. Pupils were fixed and unreactive to light bilaterally. 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 The patient was transported to [facility] as a STEMI alert, seen by Dr. Grimes. The patient was deemed not a candidate for cardiac catheterization nor cooling secondary to unwitnessed initial arrest for unknown duration of time. Critical care medicine was consulted. The patient was transferred to CVICU on epinephrine infusion. Upon admission the patient was noted to have agonal respirations pupils fixed, nonresponsive to painful stimuli. Subjective: 11/18: Tmax 101.1 Hemodynamically stable. Sinus tachycardia resolved. Epinephrine weaned off last evening. The patient remains encephalopathic. Continued myoclonic jerking. EEG results revealed possible anoxic brain injury. Neurology consulted appreciate recommendations. Palliative care has been consulted. The patient was placed on low-dose propofol/fentanyl for ventilator synchrony. Nephrology was consulted patient possibly for dialysis today. Patient continues on heparin infusion, the patient was noted to be Hemoccult positive will monitor CBC and discontinue. Objective Vital Signs Date Time Temp Pulse Resp B/P Pulse Ox O2 Delivery O2 Flow Rate FiO2 11/18/16 04:00 30 11/18/16 04:00 72 11/18/16 04:00 99 Mechanical Ventilator 11/18/16 04:00 100.3 22 115/63 144/66 Intake and Output 11/17/16 11/17/16 11/18/16 08:00 16:00 00:00 Output Total 201 ml Balance -201 ml Result Diagram: 11/17/16 7391 11/18/16 0705 Other Results Microbiology Date/Time Procedure Status Source Growth 11/18/16 01:45 Stool Occult Blood (CANDIE) - Final Complete Stool Stool HEMOCCULT POSITIVE Laboratory Tests Test 11/17/16 11/18/16 21:20 05:10 Blood Gas Puncture Site ART LINE ART LINE Blood Gas Patient Temperature 98.6 98.6 Blood Gas HCO3 15 mmol/L 19 mmol/L (22-26) (22-26) Blood Gas Base Excess -10.0 mmol/L -3.9 mmol/L (-2-2) (-2-2) Blood Gas Oxygen Saturation 96 % (90-100) 95 % (90-100) Arterial Blood pH 7.33 7.46 (7.380-7.420) (7.380-7.420) Arterial Blood Partial 29 mmHg (38-42) 28 mmHg (38-42) Pressure CO2 Arterial Blood Partial 207 mmHg 121 mmHg Pressure O2 (61-120) (61-120) Arterial Blood Oxygen Content 14.7 Vol % 13.4 Vol % (12.0-20.0) (12.0-20.0) Arterial Blood 1.2 % (0-4) 1.4 % (0-4) Carboxyhemoglobin Arterial Blood Methemoglobin 1.7 % (0-2) 1.7 % (0-2) Blood Gas Hemoglobin 10.5 G/DL 9.9 G/DL (12.0-16.0) (12.0-16.0) Oxygen Delivery Device VENTILATOR VENTILATOR Blood Gas Ventilator Setting 500/12/PEEP 6 PRVC/AC Blood Gas Inspired Oxygen 70 % 30 % Imaging Last Impressions Head CT 11/17/16 0000 Signed Impressions: Service Date/Time: Thursday, November 17, 2016 15:31 - CONCLUSION: No evidence of acute infarct, hemorrhage, mass or edema. Immanuel Santos MD Chest X-Ray 11/17/16 0000 Signed Impressions: Service Date/Time: Thursday, November 17, 2016 15:31 - CONCLUSION: Previous bypass , cardiomegaly with mild interstitial edema suggesting congestive failure. Jason Sullivan MD FACR Objective Remarks GENERAL: Critically ill-appearing male with mild myoclonic jerks SKIN: Warm and dry. HEAD: Atraumatic. Normocephalic. EYES: Pupils equal and round, nonreactive, 3 mm. No scleral icterus. No injection or drainage. ENT: No nasal bleeding or discharge. Mucous membranes pink and moist. NECK: Trachea midline. No JVD. CARDIOVASCULAR: Normal rate, regular rhythm. Telemetry-sinus rhythm RESPIRATORY: No accessory muscle use. Clear to auscultation. Breath sounds equal bilaterally. Agonal respirations GASTROINTESTINAL: Abdomen soft, non-tender, nondistended. No guarding. MUSCULOSKELETAL: Extremities without clubbing, cyanosis, or edema. No obvious deformities. Left upper extremity AV graft with bruit and thrill NEUROLOGICAL: GCS 3 T. unresponsive. No withdrawal to pain. No lid or gag reflex Urinary Catheter: Yes Payne insert reason: Measure Accurate Output Date of Insertion: Nov 17, 2016 A/P Assessment and Plan Assessment Postcardiac arrest (Unwitnessed) PEA arrest Anoxic brain injury ? End-stage renal disease Bandemia Leukocytosis Substance abuse Plan Neurologic: -11/17- EEG-markedly abnormal EEG, severe diffuse disturbance of cerebral function. Possible anoxic brain injury -Neurology consulted-appreciate recommendations -Urine tox screen- positive for Cannabinoids -11/17 CT brain-no acute infarct Respiratory: -Mechanical ventilation maintain sat greater than 92% currently on 500/6 FiO2 50 -11/18 ABG-7.46/28/121/19/-3, decrease ventilator rate -Wean FiO2 to maintain O2 sat greater than 92% -Ventilator bundle -Bronchodilators every 6 hours scheduled, every 2 hours Cardiovascular: -Cardiology Dr. Grimes- patient deemed not a candidate for heart catheterization nor hypothermic cooling - maintain a MAP greater than 65mmHG -Discontinue heparin infusion Renal: -Nephrology consult, hemodialysis per nephrology -Maintain payne- patient has oliguria, -- Strict I/Os FEN/GI: -Monitor BMP -Monitor electrolytes -Creatinine kinase 579 - OGT to LIWS -Zofran for nausea -Pepcid GI prophylaxis Heme/ID: -Blood cultures 2 - Obtain Urine Culture i -F/U sputum culture -Empiric antibiotics instituted vancomycin and cefepime Endocrine: Glucose monitoring per ICU protocol -- SSI Prophylaxis: GI Prophylaxis Pepcid twice a day DVT Prophylaxis -- SCDs Lines: Peripheral IVs 2 Dispo: 11/15: Extensive discussion with family regarding poor prognosis and probable anoxic brain injury. Weill await neurology recommendations for possible confirmation of diagnosis. I would've care team has been consulted. Initial discussions with family produced discussions regarding possible ventilator withdrawal dependent upon neurology consultation and recommendations. This patient remains critically ill with one or more organ systems which are or may become a threat to life. I have spent in excess of 30 minutes discontinuously in the care and management of this patient. This time is exclusive of procedures, and includes, but is not limited to, evaluation of the patient, review of the medical record, discussions with family, consultants, nursing staff, or respiratory therapy, and documentation in the medical record. Physician Dai Mendoza MD Nov 18, 2016 08:52
[2016-11-18] MEDS: DOCUSATE SODIUM 50 MG/SENNA 8.6 MG TAB PO SCH ×2 (09:00→21:00)
--- NOTE | 2016-11-18 09:59 | PD.CONS ---
Consult Service Palliative Care . Consult Requested By Dr. Curry . Primary Care Physician Allegra Goldman MD . Reason for Consultation a. To assist with evaluation and management of symptoms including: Pain, dyspnea, debility b. To assist medical decision maker(s) with: better understanding of current medical conditions; weighing benefits/burdens of medical treatment options; making medical treatment decisions. . HPI History of Present Illness Mr. Moore is a 56 year old male with ESRD on HD who presented to [facility] on 11/17/2016 via EMS status post an unwitnessed arrest in which he was down for an unknown period of time. EMS administered epinephrine times once with ROSC; patient was subsequently intubated. The patient's girlfriend reported the patient receives dialysis on Thursday and Saturdays; his last received hemodialysis on 11/15/2016. She stated the patient has not been feeling well and has had some shortness of breath. Additional medical history includes CHF with EF 30%, HTN, ischemic heart disease,DM, chronic anemia and CAD; patient follows Dr. Mcmillan (cardiology) outpatient. Upon presentation to the ED the patient was in sinus tachycardia with ST segment elevation in V2-V4. A STEMI alert was called Dr. Grimes (cardiology) was consulted, and he requested a CT brain to rule out a bleed. * Vital signs: Pulse 117, respirations 24, BP 215/93, oxygen saturation 82% on [facility] ventilator with 100% FiO2 * WBC: 17.5, hemoglobin 12.0, hematocrit 36.6, platelets 272 * Sodium: 1:30, potassium 5.2, chloride 99, carbon dioxide 13.9, glucose 235, calcium 7.7 * BUN: 44, creatinine 6.50, GFR 7 * Total creatine kinase: 188 * CK-MB: 2.3 troponin: 0.5 * PT: 12.0, INR 1.1, APTT 36.9 * Toxicology: + Cannabinoids * Blood cultures pending * Sputum cultures pending * Chest x-ray revealed previous bypass, cardiomegaly with mild interstitial edema suggesting congestive failure. CT head showed no evidence of acute infarct, hemorrhage, mass or edema. While at CT the patient became hypotensive and pulseless; CPR was initiated. Patient received epinephrine 1 with ROS see. Patient received calcium chloride and sodium bicarbonate. He was actually started on a dopamine drip, then change to an epinephrine drip. Follow-up chest x-ray showed bilateral consolidation and a 1.7 cm nodular consolidation in the right lower lobe. The patient was transferred to the main campus as a STEMI alert. Cardiology evaluated the patient and determined the patient was not a candidate for cardiac catheterization or hypothermia protocol secondary to the unwitnessed initial heart attack arrest for an unknown duration of time. Neurologically the patient appears to have severe anoxic brain injury without any spontaneous movement; patient does not withdraw to noxious stimuli. Critical care was consulted. The patient was transferred to CVICU on an epinephrine drip. Upon arrival to CVICU the patient was unresponsive to noxious stimuli with agonal respirations, pupils were fixed. Cardiac enzymes suggestive of an acute MN. Patient's bypass graft including a TABOR to the LAD were patent on cardiac catheterization in 2013. ES 45% in 2015. 11/18/2016: Patient remains intubated on mechanical ventilation, sedated on low- dose propofol and fentanyl. Febrile with T-max of 101.1. Sinus tachycardia has resolved and the patient has been weaned off the epinephrine drip. The patient remains encephalopathic. Having ongoing myoclonic jerking, EEG suspicious for possible anoxic brain injury. Hemoccult positive stool. Neurology and nephrology consults pending. Palliative Care was consulted to assist with symptom management and to discuss with the family the benefits and burdens of his current illnesses and the options regarding future care. . Function/Cognitive Trajectory Patient's mother and sister report the patient is disabled secondary to his DM s /p left foot amputation, significant cardiac disease and ESRD. They state the patient's decline began 20 + years ago when he was first diagnosed with DM and he has progressively worsened over the years. The patient's states the patient was "miserable" and his quality of life was poor prior to this hospitalization. . Review of Systems ROS Limitations: Clinical Condition (Patient unable to provide ROS; information obatined from family report.), Altered Mental Status, Unresponsive Constitutional: COMPLAINS OF: Fatigue, Fever, Weight loss, Pain, Generalized weakness Respiratory: COMPLAINS OF: Shortness of breath Gastrointestinal: DENIES: Nausea, Vomiting Integumentary: COMPLAINS OF: Abnormal pigmentation Hematologic/Lymphatics: COMPLAINS OF: Bruising Neurologic: COMPLAINS OF: Abnormal gait, Localized weakness, Seizures, Poor Balance Psychiatric: COMPLAINS OF: Anxiety Past Family Social History Coded Allergies: Advil (Verified Allergy, Severe, Numbness, 8/7/17) Haldol (Verified Allergy, Severe, Psychosis, 11/17/16) Past Medical History CHF EF 30% ESRD on hemodialysis CAD Hypertension Ischemic heart disease Chronic anemia DM Peripheral vascular disease Peripheral neuropathy . Past Surgical History CABG-2006 Cardiac catheterization History of AV fistula Reported Medications Unavailable at this time . Current Medications Medications (Trade) Dose Ordered Sig/Livan Route Start Time Stop Time Status Last Admin (NS 1000 ml Inj) 1,000 ml @ 42 mls/hr [id number] IV 11/17/16 18:12 (NS Flush) 2 ml UNSCH PRN IV FLUSH 11/17/16 18:15 (NS Flush) 2 ml BID IV FLUSH 11/17/16 21:00 11/17/16 22:43 (Tylenol) 650 mg Q6HR PRN PO 11/17/16 19:00 (Pepcid Inj) 20 mg Q12HR IV PUSH 11/17/16 21:00 11/17/16 22:43 Miscellaneous Information 1 [id number] XX 11/17/16 18:15 (Chlorhexidine 2% Cloth) 3 pack Taper DAILY@04 TOP 11/18/16 04:00 11/14/17 03:59 (Chlorhexidine 2% Cloth) 3 pack UNSCH PRN TOP 11/17/16 18:15 (Yoselin-Colace) 1 tab BID PO 11/17/16 21:00 (Milk Of Magnesia Liq) 30 ml Q12HR PRN PO 11/17/16 21:00 (Senokot) 17.2 mg Q12H PRN PO 11/17/16 21:00 (Dulcolax Supp) 10 mg DAILY PRN RECTAL 11/17/16 19:00 (Lactulose Liq) 30 ml DAILY PRN PO 11/17/16 18:15 Chlorhexidine Gluconate 15 ml 15 ml BID@08,20 MT 11/17/16 20:00 11/18/16 09:08 (Maxipime Inj/NS Inj) 100 ml @ 200 mls/hr Q24H IV 11/17/16 20:00 11/17/16 21:57 (D50w (Vial) Inj) 25 ml UNSCH PRN IV PUSH 11/17/16 19:15 Insulin Human Regular 1 1 Q6H SQ 11/17/16 19:15 8/8/17 07:15 Sodium Bicarbonate 150 meq/Sodium Chloride 1,000 ml @ 75 mls/hr [id number] IV 11/17/16 20:00 11/17/16 21:58 (NS 1000 ml Inj) 1,000 ml @ 0 mls/hr Q0M PRN IV 11/17/16 19:25 Heparin Sodium (Porcine) 8000 units 8,000 units UNSCH PRN IVF 11/17/16 19:30 Sodium Chloride 1,000 ml @ 200 mls/hr Q5H PRN IV 11/17/16 19:25 (NS 1000 ml Inj) 1,000 ml @ 0 mls/hr Q0M PRN IV 11/17/16 19:25 (Mannitol Inj) 12.5 gm UNSCH PRN IV 11/17/16 19:30 (Albumin 25% Inj) 25 gm UNSCH PRN IV 11/17/16 19:30 (NS Flush) 5 ml UNSCH PRN IV FLUSH 11/17/16 19:30 (Heparin Inj) UNSCH PRN .XX 11/17/16 19:30 (Gentamicin (Dialysis) Inj) 20 mg UNSCH PRN IV 11/17/16 19:30 (Zofran Inj) 4 mg UNSCH PRN IV 11/17/16 19:30 (Tylenol) 650 mg UNSCH PRN PO 11/17/16 19:30 (Benadryl) 25 mg UNSCH PRN PO 11/17/16 19:30 (Nitrostat Sl) 0.4 mg UNSCH PRN SL 11/17/16 19:30 (Catapres) 0.1 mg UNSCH PRN PO 11/17/16 19:30 (Gelfoam 12 Mm/7 Mm Top) 1 foam UNSCH PRN TOP 11/17/16 19:30 Chlorhexidine Gluconate 15 ml 15 ml BID@08,20 MT 11/18/16 08:00 (Diprivan 1000 Mg/100ml Inj) 100 ml @ 0 mls/hr TITRATE IV 11/17/16 23:30 11/18/16 05:13 (Nitroglycerin 2% Oint) 2 inch Q6HR PRN TOPICAL 11/17/16 23:30 (Apresoline Inj) 10 mg Q1HR PRN IV PUSH 11/17/16 23:30 11/18/16 08:43 (Trandate Inj) 10 mg Q1HR PRN IV PUSH 11/17/16 23:30 (Lopressor) 12.5 mg Q12HR PO 11/18/16 09:00 (Vasotec) 2.5 mg DAILY PO 11/18/16 09:00 (Aspirin Chew) 81 mg DAILY CHEW 11/18/16 09:00 (Lasix) 80 mg DAILY PO 11/18/16 09:00 (Pill Splitter) 1 ea UNSCH PRN OTHER 11/18/16 08:45 . Family History Patient's mother is alive with a history of CABG 4, CVA and lupus. Patient's father at the age of 70 from complications related to lung cancer. Familial history of DM, both maternal and paternal. . Substance Use Tobacco: Previous smoker; patient started smoking at 16 years of age. Alcohol: Occasional EtOH consumption Prescription med abuse: None known Illicits: + Marijuana use . Psychosocial History Patient is originally from [place]. He has 2 sisters. Rhianna lives locally and Clary lives in [place]. Patient's mother, Rose also lives in [place]. Patient moved to [place] approximately 20 years ago. He has never been and has no children, but he has been with his significant other Amy for 24+ years. Patient worked for the [employer] [place], but is now disabled due to his multiple medical conditions. . Spiritual/Cultural Factors Raised Amish . Living Will: Never completed Health Care Surrogate: Never completed Durable Power of [employer] Caser: Never completed Documented care wishes: No documented care wishes were completed. . Today's verbally stated goals: Patient is unable to verbalize medical treatment goals secondary to his clinical condition. . Family/friends goals: Patient's family verbalizing an understanding that the patient is critically ill. Patient's mother states the patient would not want to live on a machine. Awaiting neurology consult and EEG results before making any decisions about changing medical treatment goals. . Ethical and Legal Issues No known ethical or legal issues at this time. . Physical Exam Vital Signs Date Time Temp Pulse Resp B/P Pulse Ox O2 Delivery O2 Flow Rate FiO2 11/18/16 07:38 99 30 11/18/16 04:00 30 11/18/16 04:00 72 11/18/16 04:00 99 Mechanical Ventilator 30 11/18/16 04:00 100.3 72 22 115/63 99 144/66 11/18/16 03:34 99 30 11/18/16 01:30 30 11/18/16 00:30 99 30 11/18/16 00:00 101.1 89 31 174/83 99 175/73 11/18/16 00:00 30 11/18/16 00:00 88 11/18/16 00:00 99 Mechanical Ventilator 30 11/17/16 23:00 30 11/17/16 22:00 50 11/17/16 21:30 60 11/17/16 21:00 70 11/17/16 20:55 100 70 11/17/16 20:00 96 11/17/16 20:00 80 11/17/16 20:00 99 Mechanical Ventilator 80 11/17/16 20:00 99.1 97 12 136/74 99 163/54 11/17/16 19:55 99 80 11/17/16 17:30 99 Mechanical Ventilator 90 11/17/16 17:24 90 11/17/16 16:40 97 100 11/17/16 16:00 96 20 117/66 90 Ventilator 11/17/16 15:55 102 20 160/77 Ventilator 11/17/16 15:50 109 20 183/83 82 Ventilator 11/17/16 15:35 117 24 96/47 88 Ventilator 11/17/16 15:30 100 11/17/16 15:30 66 100 11/17/16 15:25 117 24 215/93 82 Ventilator 11/17/16 15:20 82 100 . 11/17/16 11/18/16 19:00 07:00 Intake Total 1385 ml Output Total 201 ml 135 ml Balance -201 ml 1250 ml Intake Oral 0 ml IV Total 1385 ml Output Urine Total 200 ml 85 ml Stool Total 1 ml Gastric Drainage Total 50 ml # Bowel Movements 1 . Exam CONSTITUTIONAL/GENERAL: This is a critically ill male patient who is intubated on mechanical ventilator TUBES/LINES/DRAINS: ETT, NGT, Rooney, PIV 2, AV fistula, soft restraints. arterial line SKIN: No jaundice, rashes, or lesions. Ecchymoses on upper extremities. Skin is warm to touch. HEAD: Atraumatic. Normocephalic. EYES: Pupils are nonreactive No scleral icterus. Fundi not examined. ENT: Unable to assess hearing. Nose without bleeding or purulent drainage. NECK: Trachea midline. CARDIOVASCULAR: Regular rate and rhythm without murmurs, gallops, or rubs. No JVD. Peripheral pulses symmetric. RESPIRATORY/CHEST: Intubated on mechanical ventilator. Breath sounds diminished bilaterally. GASTROINTESTINAL: Abdomen soft, non-tender, nondistended. No hepato-splenomegaly , or palpable masses. No guarding. Bowel sounds present. GENITOURINARY: Without palpable bladder distension. Rooney catheter in place. MUSCULOSKELETAL: Extremities without clubbing, cyanosis, or edema. No joint tenderness or effusion noted. No calf tenderness. No mottling or clubbing. LYMPHATICS: No palpable cervical or supraclavicular adenopathy. NEUROLOGICAL: Patient unresponsive to noxious stimuli PSYCHIATRIC: Unable to assess secondary to patient's clinical condition . Diagnostic Tests Laboratory Laboratory Tests Test 11/17/16 11/17/16 11/17/16 11/17/16 15:20 17:45 18:15 20:18 White Blood Count 17.5 TH/MM3 14.3 TH/MM3 (4.0-11.0) (4.0-11.0) Red Blood Count 3.93 MIL/MM3 3.85 MIL/MM3 (4.50-5.90) (4.50-5.90) Hemoglobin 12.0 GM/DL 12.0 GM/DL (13.0-17.0) (13.0-17.0) Hematocrit 36.6 % 36.5 % (39.0-51.0) (39.0-51.0) Mean Corpuscular Volume 93.2 FL 95.0 FL (80.0-100.0) (80.0-100.0) Mean Corpuscular Hemoglobin 30.7 PG 31.3 PG (27.0-34.0) (27.0-34.0) Mean Corpuscular Hemoglobin 32.9 % 32.9 % Concent (32.0-36.0) (32.0-36.0) Red Cell Distribution Width 14.9 % 15.2 % (11.6-17.2) (11.6-17.2) Platelet Count 272 TH/MM3 263 TH/MM3 (150-450) (150-450) Mean Platelet Volume 8.1 FL 8.0 FL (7.0-11.0) (7.0-11.0) Neutrophils (%) (Auto) % (16.0-70.0) Lymphocytes (%) (Auto) % (9.0-44.0) Monocytes (%) (Auto) % (0.0-8.0) Eosinophils (%) (Auto) % (0.0-4.0) Basophils (%) (Auto) % (0.0-2.0) Neutrophils # (Auto) TH/MM3 (1.8-7.7) Lymphocytes # (Auto) TH/MM3 (1.0-4.8) Monocytes # (Auto) TH/MM3 (0-0.9) Eosinophils # (Auto) TH/MM3 (0-0.4) Basophils # (Auto) TH/MM3 (0-0.2) CBC Comment AUTO DIFF Differential Total Cells 100 Counted Neutrophils % (Manual) 62 % (16-70) Band Neutrophils % 8 % (0-6) Lymphocytes % 19 % (9-44) Monocytes % 5 % (0-8) Eosinophils % 2 % (0-4) Neutrophils # (Manual) 13.0 TH/MM3 (1.8-7.7) Metamyelocytes 4 % (0-1) Differential Comment FINAL DIFF MANUAL Atypical Lymphocytes % (0-0) Platelet Estimate NORMAL (NORMAL) Platelet Morphology Comment NORMAL (NORMAL) Red Cell Morphology Comment NORMAL (NORMAL) Prothrombin Time 12.0 SEC 12.5 SEC (9.8-11.6) (9.8-11.6) Prothromb Time International 1.1 RATIO 1.1 RATIO Ratio Activated Partial 36.9 SEC 33.6 SEC Thromboplast Time (24.3-30.1) (24.3-30.1) Sodium Level 130 MEQ/L 131 MEQ/L (136-145) (136-145) Potassium Level 5.2 MEQ/L 4.7 MEQ/L (3.5-5.1) (3.5-5.1) Chloride Level 99 MEQ/L 96 MEQ/L (98-107) (98-107) Carbon Dioxide Level 13.9 MEQ/L 17.8 MEQ/L (21.0-32.0) (21.0-32.0) Anion Gap 17 MEQ/L (5-15) 17 MEQ/L (5-15) Blood Urea Nitrogen 44 MG/DL (7-18) 43 MG/DL (7-18) Creatinine 6.50 MG/DL 6.54 MG/DL (0.60-1.30) (0.60-1.30) Estimat Glomerular Filtration 7 ML/MIN (>89) 9 ML/MIN (>89) Rate Random Glucose 235 MG/DL 280 MG/DL (74-106) (74-106) Calcium Level 7.7 MG/DL 8.1 MG/DL (8.5-10.1) (8.5-10.1) Total Creatine Kinase 188 U/L 159 U/L (39-308) (39-308) Creatine Kinase MB 2.3 NG/ML (0.5-3.6) Troponin I 0.05 NG/ML (0.02-0.05) Lactic Acid Level 6.0 mmol/L 4.0 mmol/L (0.4-2.0) (0.4-2.0) Phosphorus Level 8.7 MG/DL (2.5-4.9) Magnesium Level 2.7 MG/DL (1.5-2.5) Total Bilirubin 0.6 MG/DL (0.2-1.0) Aspartate Amino Transf 37 U/L (15-37) (AST/SGOT) Alanine Aminotransferase 38 U/L (12-78) (ALT/SGPT) Alkaline Phosphatase 110 U/L (45-117) B-Type Natriuretic Peptide 2504 PG/ML (0-100) Total Protein 7.1 GM/DL (6.4-8.2) Albumin 3.6 GM/DL (3.4-5.0) Acetaminophen Level 7.3 MCG/ML (10.0-30.0) Urine Opiates Screen NEG (NEG) Urine Barbiturates Screen NEG (NEG) Urine Amphetamines Screen NEG (NEG) Urine Benzodiazepines Screen NEG (NEG) Urine Cocaine Screen NEG (NEG) Urine Cannabinoids Screen POS (NEG) Test 11/17/16 11/17/16 11/18/16 11/18/16 21:20 22:50 01:45 04:30 Blood Gas Puncture Site ART LINE Blood Gas Patient Temperature 98.6 Blood Gas HCO3 15 mmol/L (22-26) Blood Gas Base Excess -10.0 mmol/L (-2-2) Blood Gas Oxygen Saturation 96 % (90-100) Arterial Blood pH 7.33 (7.380-7.420) Arterial Blood Partial 29 mmHg (38-42) Pressure CO2 Arterial Blood Partial 207 mmHg Pressure O2 (61-120) Arterial Blood Oxygen Content 14.7 Vol % (12.0-20.0) Arterial Blood 1.2 % (0-4) Carboxyhemoglobin Arterial Blood Methemoglobin 1.7 % (0-2) Blood Gas Hemoglobin 10.5 G/DL (12.0-16.0) Oxygen Delivery Device VENTILATOR Blood Gas Ventilator Setting 500/12/PEEP 6 Blood Gas Inspired Oxygen 70 % Nasal Screen MRSA (PCR) MRSA NOT DETECTED (NOT DETECT) Activated Partial 46.3 SEC Thromboplast Time (24.3-30.1) Sodium Level 138 MEQ/L (136-145) Potassium Level 4.3 MEQ/L (3.5-5.1) Chloride Level 100 MEQ/L (98-107) Carbon Dioxide Level 22.8 MEQ/L (21.0-32.0) Anion Gap 15 MEQ/L (5-15) Blood Urea Nitrogen 56 MG/DL (7-18) Creatinine 7.08 MG/DL (0.60-1.30) Estimat Glomerular Filtration 8 ML/MIN (>89) Rate Random Glucose 184 MG/DL (74-106) Calcium Level 7.5 MG/DL (8.5-10.1) Phosphorus Level 4.3 MG/DL (2.5-4.9) Magnesium Level 2.3 MG/DL (1.5-2.5) Total Creatine Kinase 579 U/L (39-308) Creatine Kinase MB 18.4 NG/ML (0.5-3.6) Creatine Kinase MB % 3.2 % (0.0-4.0) Test 11/18/16 11/18/16 05:10 08:00 Blood Gas Puncture Site ART LINE Blood Gas Patient Temperature 98.6 Blood Gas HCO3 19 mmol/L (22-26) Blood Gas Base Excess -3.9 mmol/L (-2-2) Blood Gas Oxygen Saturation 95 % (90-100) Arterial Blood pH 7.46 (7.380-7.420) Arterial Blood Partial 28 mmHg (38-42) Pressure CO2 Arterial Blood Partial 121 mmHg Pressure O2 (61-120) Arterial Blood Oxygen Content 13.4 Vol % (12.0-20.0) Arterial Blood 1.4 % (0-4) Carboxyhemoglobin Arterial Blood Methemoglobin 1.7 % (0-2) Blood Gas Hemoglobin 9.9 G/DL (12.0-16.0) Oxygen Delivery Device VENTILATOR Blood Gas Ventilator Setting PRVC/AC Blood Gas Inspired Oxygen 30 % White Blood Count 17.2 TH/MM3 (4.0-11.0) Red Blood Count 3.18 MIL/MM3 (4.50-5.90) Hemoglobin 9.6 GM/DL (13.0-17.0) Hematocrit 29.5 % (39.0-51.0) Mean Corpuscular Volume 92.8 FL (80.0-100.0) Mean Corpuscular Hemoglobin 30.0 PG (27.0-34.0) Mean Corpuscular Hemoglobin 32.4 % Concent (32.0-36.0) Red Cell Distribution Width 14.7 % (11.6-17.2) Platelet Count 154 TH/MM3 (150-450) Mean Platelet Volume 8.4 FL (7.0-11.0) Neutrophils (%) (Auto) 93.5 % (16.0-70.0) Lymphocytes (%) (Auto) 2.4 % (9.0-44.0) Monocytes (%) (Auto) 4.0 % (0.0-8.0) Eosinophils (%) (Auto) 0.0 % (0.0-4.0) Basophils (%) (Auto) 0.1 % (0.0-2.0) Neutrophils # (Auto) 16.1 TH/MM3 (1.8-7.7) Lymphocytes # (Auto) 0.4 TH/MM3 (1.0-4.8) Monocytes # (Auto) 0.7 TH/MM3 (0-0.9) Eosinophils # (Auto) 0.0 TH/MM3 (0-0.4) Basophils # (Auto) 0.0 TH/MM3 (0-0.2) CBC Comment DIFF FINAL Differential Comment Activated Partial 50.4 SEC Thromboplast Time (24.3-30.1) . Result Diagram: 11/18/16 0800 11/18/16 0430 Microbiology Microbiology Date/Time Procedure Status Source Growth 11/17/16 18:12 Gram Stain Received Sputum Endotracheal Pending 11/17/16 18:12 Sputum Culture Received Sputum Endotracheal Pending 11/17/16 20:12 Aerobic Blood Culture Received Blood Peripheral Pending 11/17/16 20:12 Anaerobic Blood Culture Received Blood Peripheral Pending 11/17/16 20:18 Aerobic Blood Culture Received Blood Peripheral Pending 11/17/16 20:18 Anaerobic Blood Culture Received Blood Peripheral Pending 11/17/16 22:45 Gram Stain Received Sputum Endotracheal Pending 11/17/16 22:45 Sputum Culture Received Sputum Endotracheal Pending 11/18/16 01:45 Stool Occult Blood (CANDIE) - Final Complete Stool Stool HEMOCCULT POSITIVE . Imaging Last 72 hours Impressions Chest X-Ray 11/18/16 0600 Signed Impressions: Service Date/Time: Friday, November 18, 2016 04:02 - CONCLUSION: Bilateral consolidation decreased since the previous study. Right lung base nodule suspected. NG tube should be advanced. Garry Dykes MD Head CT 11/17/16 0000 Signed Impressions: Service Date/Time: Thursday, November 17, 2016 15:31 - CONCLUSION: No evidence of acute infarct, hemorrhage, mass or edema. Immanuel Santos MD Chest X-Ray 11/17/16 0000 Signed Impressions: Service Date/Time: Thursday, November 17, 2016 15:31 - CONCLUSION: Previous bypass , cardiomegaly with mild interstitial edema suggesting congestive failure. Jason Sullivan MD FACR . Procedures 11/17/2016: Patient 11/17/2016: NGT Patient/Family Conference Present at Family Conference: Met with patient's mother and sister (Rhianna). Also present palliative care Maria D CALIXTO. . Family Conference Location: Bedside, Consult Room Issues Discussed: * Palliative care role, purpose, approach * Additional medical, psychosocial, and spiritual history * Patients general health, functional status, and cognitive changes in the months leading up to the current hospitalization * Patient/family understanding of the current medical problems * Patient/family understanding of prognosis * Patients goals of care as best understood from advance directives and/or conversations and/or values * Current medical treatment options and benefits/burdens of those options * Likely scenarios comparing ongoing aggressive care with a transition to comfort measures only * Questions answered to the best of my ability * Palliative care contact information provided . Assessment and Plan Disease Oriented Problem List: (1) CAD (coronary artery disease) (2) Ischemic cardiomyopathy (3) Encephalopathy acute (4) STEMI (ST elevation myocardial infarction) (5) End-stage renal disease on hemodialysis (6) Diabetes (7) Dyspnea (8) CHF (congestive heart failure) (9) Encephalopathy (10) Ischemic heart disease (11) Chronic anemia Symptom Scale: (1) Pain (2) Debility (3) Dyspnea Pertinent Non-Medical Issues Psychosocial: Patient is originally from [place]. He has 2 sisters. Rhianna lives locally and Clary lives in [place]. Patient's mother, Rose also lives in [place]. Patient moved to [place] approximately 20 years ago. He has never been and has no children, but he has been with his significant other Amy for 24+ years. Patient worked for the [employer] [place], but is now disabled due to his multiple medical conditions. Spiritual: Patient was raised Amish Legal: Per [place] statutes, in the absence of written advanced directives healthcare proxy decision-making falls to the patient's . Ethical issues impacting care: No known ethical issues impacting care at this time. . Important Contacts Rose Moore, mother: [phone] Amy Reese, significant other: [phone] . Prognosis Patient is a 56 year old male status post cardiac arrest 2 and STEMI. EEG on was abnormal showing severe diffuse disturbance of cerebral function, possible anoxic brain injury. Patient remains critically ill with multiple organ dysfunction. Prognosis is poor. . Code Status: Alternative Code (intubation only) Plan * Alternate CODEintubation only * Decision making: Per [place] statutes, in the absence of written advanced directives healthcare proxy decision-making falls to the patient's mother * Goals: Goals are aggressive option the point of cardiopulmonary resuscitation pending neurology consult. * Patient's family verbalizing an understanding that the patient is critically ill. Patient's mother states the patient would not want to live on a machine. Awaiting neurology consult and EEG results before making any decisions about changing medical treatment goals. * Discussed patient with Dr. Curry and bedside nurse. . Thank you for the opportunity to participate in the care of Mr. Moore. Attestation To help prompt me to consider important information that might be impacting today's encounter and assessment, information from prior notes written by myself or my colleagues may have been "brought forward" into today's note. My signature on this note, however, is an attestation that I personally performed the exam, history, and/or decision-making noted today, and, unless otherwise indicated, the interactions with patient, family, and staff as well as the review of records all occurred today. I also attest that the listed assessment and stated plan reflect my best clinical judgment today based on the combination of historical information, prior notes, and today's exam/ interactions. When time spent is documented, it refers only to time spent today by the signer, or if indicated, combined time spent today by collaborating physician/nurse practitioner. . Irina Shelby Nov 18, 2016 09:59
[2016-11-18] MEDS: FUROSEMIDE 80 MG TAB PO SCH (10:05)
[2016-11-18] MEDS: ASPIRIN 81 MG CHEW TAB CHEW SCH (10:06)
[2016-11-18] MEDS: FAMOTIDINE 20 MG/2 ML VIAL IV PUSH SCH ×2 (10:06→21:00)
[2016-11-18] MEDS: SODIUM CHLORIDE 0.9% FLUSH 10 ML FLUSH IV FLUSH SCH ×2 (10:07→23:37)
[2016-11-18] MEDS: SODIUM BICARBONATE 8.4% INJ 150 MEQ in SODIUM CHLOR 0.9% 1000 ML INJ 850 ML IV SCH (10:39)
--- NOTE | 2016-11-18 11:23 | MB ---
cc: GALDINO DUNN MD DATE OF CONSULTATION 11/17/2016 REASON FOR CONSULTATION End-stage renal disease on hemodialysis for management. HISTORY OF PRESENT ILLNESS This is a 56-year-old male known to me from before with a past medical history of hypertension, diabetes mellitus, ischemic heart disease, congestive heart failure, chronic anemia, end-stage renal disease on hemodialysis two times per week who was brought to the hospital because of unresponsiveness. I was called to see the patient for the management of dialysis. The patient was found bradycardic by the EVAC and unresponsive and the patient was in PEA, pulseless electrical activity. CPR was done. The patient has ST elevation MN and alert was called and he has fixed and nonreactive pupils and he was seen by the oliver filter operator. The patient was declared by cardiology as not a candidate for cardiac catheterization or choline secondary to the possibility of brain damage. The patient has been on hemodialysis Thursday and Thursday. Since he still has some renal function, he missed his Thursday dialysis last week because he was feeling sick and he went there on Thursday. I saw him during dialysis and he was complaining that his blood sugar has been going down off and on. The patient has very labile blood sugar and it goes up and down. According to the girlfriend who was taking care of him, his blood sugar was low this morning and he was sweating and she gave him some orange juice and he did not have any hypotensive documented episode here. PAST MEDICAL HISTORY 1. Hypertension 2. Ischemic heart disease 3. Chronic anemia 4. Congestive heart failure 5. Diabetes mellitus 6. Chronic anemia 7. End-stage renal disease on hemodialysis PAST SURGICAL HISTORY 1. History of A-V fistula 2. Cardiac catheterization REVIEW OF SYSTEMS Cannot be taken since the patient is intubated and nonresponsive. ALLERGIES HE IS ALLERGIC TO ADVIL AND HALDOL. MEDICATIONS Currently he is gettin. IV fluid with sodium bicarbonate 2. Vancomycin one dose was written 3. Nimbex injection was one dose given 4. Famotidine 20 mg q12h 5. Cefepime 2 grams q24h 6. Insulin sliding scale PHYSICAL EXAM On examination, the patient is intubated and last blood pressure is 117/66, temperature is afebrile. He is on ventilator with 90% FIO2. HEAD, EYES, EARS, NOSE, AND THROAT: Pupils are mid constricted and nonreactive. Conjunctiva pale. NECK: Supple. JVD is not elevated. LUNGS: The patient has bilateral decreased air entry with occasional wheezing. HEART: S1 and S2 regular rhythm. ABDOMEN: Distended, soft and lax. There is no tenderness. EXTREMITIES: He has mild edema. INVESTIGATIONS WBC count is 14.3, hemoglobin 12.0, platelet count 263. Sodium 131, potassium 4.7, chloride 96, bicarb 17.8, BUN 43, creatinine 6.5. Glucose 280, calcium 8.1, phosphorus 8.7, magnesium 2.7, AST/ALT normal, BNP is 2504, lactic acid 6.0. Toxicology screen is pending except the acetaminophen level is 7.3. IMAGING STUDIES The patient had a CT scan of the brain done which shows no evidence of infarction. Chest x-ray was done which shows cardiomegaly with some interstitial edema. ASSESSMENT/PLAN 1. Post cardiac arrest with acute MN. 2. Pulseless electrical activity with some encephalopathy, and brain damage. 3. Respiratory failure 4. End-stage renal disease on hemodialysis. 5. History of congestive heart failure 6. Lactic acidosis The patient has been on hemodialysis twice a week and now he has this acute coronary event with the possibility of some damage to the brain. He is getting the EEG. Neurology has been consulted. I discussed with the family, his mother, and we will wait for further recommendation from the neurology and the result for the EEG. He is due for dialysis tomorrow. His potassium repeat one is better. He is on IV fluids with sodium bicarbonate. I will arrange for his hemodialysis tomorrow. The mother is saying that the patient does not want to live on the machine. We will wait for further neurology recommendations. Thank you for the consultation. I will follow the patient while he is in the hospital. MD MIRNA Reed/LEA /7:19 PM /11:08 AM
--- NOTE | 2016-11-18 12:45 | ECHRPT ---
Indication: S/P PEA ARREST X2 CONCLUSIONS Normal left ventricular size. Wall thickness is normal. The left ventricular systolic function is tsiykrfo-tx-gorqimn reduced with an estimated ejection fra ction in the range of 35-40%. Anterior wall dyskinesis. Trace mitral valve regurgitation. Aortic valve sclerosis is present. No aortic valve stenosis. There is mild tricuspid valve regurgitation. There is estimated rppwfjtl-go-oyawlh pulmonary hypertension present (range 60-70 mmHg). BP: 115 / 63 HR: 72 Rhythm: Sinus MEASUREMENTS (Male / Female) Normal Values Technical Quality:Fair 2D ECHO LV Diastolic Diameter PLAX 5.7 cm 4.2 - 5.9 / 3.9 - 5.3 cm LV Systolic Diameter PLAX 4.9 cm IVS Diastolic Thickness 0.9 cm 0.6 - 1.0 / 0.6 - 0.9 cm LVPW Diastolic Thickness 1.0 cm 0.6 - 1.0 / 0.6 - 0.9 cm LV Relative Wall Thickness 0.3 LVOT Diameter 2.0 cm Aortic Root Diameter 3.1 cm LA Systolic Diameter LX 3.9 cm 3.0 - 4.0 / 2.7 - 3.8 cm M-MODE AV Cusp Separation MM 1.6 cm DOPPLER AV Peak Velocity 221.0 cm/s AV Peak Gradient 19.5 mmHg AV Mean Gradient 11.0 mmHg AV Velocity Time Integral 31.3 cm LVOT Peak Velocity 117.0 cm/s LVOT Peak Gradient 5.5 mmHg LVOT Velocity Time Integral 16.4 cm AV Area Cont Eq vti 1.6 cm AV Area Cont Eq pk 1.7 cm Mitral E Point Velocity 103.0 cm/s Mitral A Point Velocity 76.0 cm/s Mitral E to A Ratio 1.4 LV E' Lateral Velocity 10.5 cm/s Mitral E to LV E' Lateral Ratio 9.8 LV E' Septal Velocity 8.3 cm/s Mitral E to LV E' Septal Ratio 12.4 TR Peak Velocity 357.0 cm/s TR Peak Gradient 51.0 mmHg PV Peak Velocity 110.0 cm/s PV Peak Gradient 4.8 mmHg FINDINGS LEFT VENTRICLE Normal left ventricular size. Wall thickness is normal. The left ventricular systolic function is edfdxrpy-cx-npsmnfj reduced with an estimated ejection fra ction in the range of 35-40%. RIGHT VENTRICLE Normal right ventricular size and systolic function. LEFT ATRIUM The left atrial size is normal. RIGHT ATRIUM The right atrial size is normal. ATRIAL SEPTUM Normal atrial septal thickness without atrial level shunting by limited color doppler interrogation. AORTA The aortic root and proximal ascending aorta are normal in size on limited imaging. MITRAL VALVE Structurally normal mitral valve. Trace mitral valve regurgitation. AORTIC VALVE Trileaflet aortic valve. Aortic valve sclerosis is present. No aortic valve stenosis. TRICUSPID VALVE Structurally normal tricuspid valve. There is mild tricuspid valve regurgitation. There is estimated gnbyqyil-es-muzews pulmonary hypertension present (range 60-70 mmHg). PULMONARY VALVE The pulmonary valve is not well visualized. VESSELS The inferior vena cava is normal in size. PERICARDIUM No pericardial effusion. Osito Grimes MD, FACC (Electronically Signed) Final Date:18 November 2016 12:45
[2016-11-18] MEDS: METOPROLOL TARTRATE 25 MG TAB PO SCH ×2 (15:26→21:00)
[2016-11-18] MEDS: ENALAPRIL MALEATE 2.5 MG TAB PO SCH (15:26)
--- NOTE | 2016-11-18 15:48 | EKG ---
Date Performed: 11/17/2016 Time Performed: 15:20:39 PTAGE: 56 years EKG: ATRIAL FLUTTER/TACHYCARDIA WITH RAPID VENTRICULAR RESPONSE INDETERMINATE AXIS LOW QRS VOLTA GE IN EXTREMITY LEADS ANTERIOR MYOCARDIAL INFARCTION INTERPRETATION BASED ON A DEFAULT AGE OF 40 YEAR S NO PREVIOUS TRACING DOCTOR: Mayuri Davenport Interpretating Date/Time 11/18/2016 15:43:09
--- NOTE | 2016-11-18 15:48 | EKG ---
Date Performed: 11/17/2016 Time Performed: 15:23:23 PTAGE: 56 years EKG: SINUS TACHYCARDIA WITH OCCASIONAL VENTRICULAR PREMATURE COMPLEXES LEFT ATRIAL ENLARGEMENT L OW QRS VOLTAGE IN EXTREMITY LEADS ANTERIOR MYOCARDIAL INFARCTION INTERPRETATION BASED ON A DEFAULT AG E OF 40 YEARS PREVIOUS TRACING : 11/17/2016 15.20 DOCTOR: Mayuri Davenport Interpretating Date/Time 11/18/2016 15:43:00
--- NOTE | 2016-11-18 17:25 | HHI.NPPN ---
Subjective General Problems: Anemia, Hypertension Renal Failure: End Stage Renal Disease History of Present Illness 56-year-old male known to me from before with a past medical history of hypertension, diabetes mellitus, ischemic heart disease, congestive heart failure, chronic anemia, end-stage renal disease on hemodialysis two times per week who was brought to the hospital because of unresponsiveness. I was called to see the patient for the management of dialysis. Additional Remarks Patient remain on the vent. and unresponsive. Objective Data Data 11/17/16 11/18/16 19:00 07:00 Intake Total 1385 ml Output Total 201 ml 135 ml Balance -201 ml 1250 ml Intake Oral 0 ml IV Total 1385 ml Output Urine Total 200 ml 85 ml Stool Total 1 ml Gastric Drainage Total 50 ml # Bowel Movements 1 Vital Signs Date Time Temp Pulse Resp B/P Pulse Ox O2 Delivery O2 Flow Rate FiO2 11/18/16 15:00 30 11/18/16 15:00 98 Mechanical Ventilator 30 11/18/16 15:00 99.9 93 25 167/68 98 174/65 11/18/16 15:00 93 11/18/16 13:30 98 30 11/18/16 11:00 100.9 87 29 116/59 99 127/59 11/18/16 11:00 86 11/18/16 11:00 97 Mechanical Ventilator 30 11/18/16 11:00 30 11/18/16 07:38 99 30 11/18/16 07:00 97 Mechanical Ventilator 30 11/18/16 07:00 30 11/18/16 07:00 87 152/70 174/59 11/18/16 07:00 102.1 87 26 152/70 99 174/59 11/18/16 07:00 86 11/18/16 04:00 30 11/18/16 04:00 72 11/18/16 04:00 99 Mechanical Ventilator 30 11/18/16 04:00 100.3 72 22 115/63 99 144/66 11/18/16 03:34 99 30 11/18/16 01:30 30 11/18/16 00:30 99 30 11/18/16 00:00 101.1 89 31 174/83 99 175/73 11/18/16 00:00 30 11/18/16 00:00 88 11/18/16 00:00 99 Mechanical Ventilator 30 11/17/16 23:00 30 11/17/16 22:00 50 11/17/16 21:30 60 11/17/16 21:00 70 11/17/16 20:55 100 70 11/17/16 20:00 96 11/17/16 20:00 80 11/17/16 20:00 99 Mechanical Ventilator 80 11/17/16 20:00 99.1 97 12 136/74 99 163/54 11/17/16 19:55 99 80 11/17/16 17:30 99 Mechanical Ventilator 90 11/17/16 17:24 90 -: 11/18/16 0800 11/18/16 0430 Microbiology 11/17/16 Gram Stain, Received Pending 11/17/16 Sputum Culture, Received Pending 11/17/16 Aerobic Blood Culture - Preliminary, Resulted NO GROWTH IN 1 DAY 11/17/16 Anaerobic Blood Culture - Preliminary, Resulted NO GROWTH IN 1 DAY 11/17/16 Aerobic Blood Culture - Preliminary, Resulted NO GROWTH IN 1 DAY 11/17/16 Anaerobic Blood Culture - Preliminary, Resulted NO GROWTH IN 1 DAY 11/17/16 Gram Stain - Final, Resulted 11/17/16 Sputum Culture - Preliminary, Resulted IMMATURE GROWTH - REINCUBATE 11/18/16 Stool Occult Blood (CANDIE) - Final, Complete HEMOCCULT POSITIVE Physical Exam General Appearance Remarks Intubated and unresponsive. Eyes Eye Remarks Pupil mid constrictive, non reactive, no corneal reflex. Throat Throat Exam: Oral Mucosa [place] & Moist Neck Neck Exam: Neck Supple, Trachea Midline Pulmonary Resp Exam: Breath Sounds Equal, No Distress, Decreased Bases Cardiology CV Exam: Regular, Normal Sinus Rhythm Gastrointestinal/Abdomen GI Exam: Soft, Non-Tender, Bowel Sounds Present Extremeties Extremities Exam: Trace Edema Neurologic Neuro Exam: Obtunded, Unresponsive Assessment/Plan Assessment Summary: Anemia of CKD, Hypertension, Diabetes Mellitus, End Stage Renal Disease Problem List: (1) STEMI (ST elevation myocardial infarction) (2) CAD (coronary artery disease) (3) Ischemic cardiomyopathy (4) Encephalopathy acute (5) End-stage renal disease on hemodialysis Plan Patient was seen by Neurology, possibly has Hypoxic encephalopathy, result of EEG noted. HD done and 4 liters removed. Tolerated well, BP is stable. For repeat CT of brain in AM. D/W the mother and sister at bed side. Problem Qualifiers (1) STEMI (ST elevation myocardial infarction): Qualified Code: I21.3 - ST elevation myocardial infarction (STEMI), unspecified artery (2) CAD (coronary artery disease): Qualified Code: I25.10 - Coronary artery disease involving [place] coronary artery of [place] heart, angina presence unspecified Pepper Kennedy MD Nov 18, 2016 17:24
[2016-11-18] MEDS: SODIUM CHLOR 0.9% 1000 ML INJ 1,000 ML IV SCH (17:28)
--- NOTE | 2016-11-18 20:40 | MB ---
cc: LETICIA BERNSTEIN M.D. DATE OF CONSULTATION: 11/18/2016 DATE OF : 1960 REASON FOR CONSULTATION Anoxic encephalopathy. HISTORY OF PRESENT ILLNESS: The patient is a 56-year-old man found unresponsive by EVAC with agonal breathing, also bradycardiac. As per EVAC apparently he was in PEA arrest and a total of two epi given. He was intubated by EVAC, bilateral equal breath sounds on arrival. Apparently his past medical history is significant for heart disease, end-stage renal disease, on hemodialysis. He was dialyzed today. He was admitted and transported here as a STEMI alert and seen by Dr. Grimes. He has an EF of 30%. ALLERGIES: ADVIL HALDOL PHYSICAL EXAMINATION: VITAL SIGNS: Temperature is 99.9 core, heart rate 92, respiratory rate 25, blood pressure 167/68 sating 98%, FIO2 30%. He is intubated on Diprivan. Pupils are pinpoint. He has spontaneous eye opening, no gaze deviation. He does not have any pupillary response, it is pinpoint. He has no corneals, no oculocephalics. He does over breathe the ventilator. No withdrawal to painful stimuli. No localizing, not following commands. No blink to threat. DTRs are trace to 1+ upper, absent knees, right toe neutral, left partial amputation. Cerebellar, gait cannot be assessed. LABORATORY DATA: Reviewed. UDS is positive for cannabinoids. Acetaminophen levels 7.3. Microbiology: So far immature growth, no growth at one day. Hemoccult positive stool. IMAGING STUDIES: CT head did not show any acute infarct, mass or edema. His EEG results performed stat upon admission, confirms abnormality because of rare bursts with higher amplitude delta and theta activity with maximally frontally superimposed on the background of markedly low amplitude rhythms. After Nimbex was given there was muscle artifact that was previously seen dissipated. EEG findings suggest a markedly severe diffuse disturbance of cerebral function, possible anoxic injury. IMPRESSION A 56-year-old man with what looks like anoxic encephalopathy. Recommendations were discussed with the staff. Recommend repeating an EEG tomorrow. Will hold his Diprivan at least from 6 o'clock in the morning, onward if possible, to see if there is any change. Consider repeat CT if he is stable to look for any edema. I did discuss with the family given the current findings, prognosis for meaningful neurologic recovery is unlikely. However, the family opted to continue current care and we will follow him in the next 24 to 48 hours and make further prognostication. MD UNA Yee/GUI /4:32 PM /8:24 PM
[2016-11-18] MEDS: CEFEPIME INJ 2,000 MG in SODIUM CHLORIDE 0.9% INJ 100 ML IV SCH (23:36)
[2016-11-19] VITALS (12 sets, daily range): BP systolic 68–152; BP diastolic 36–73; PULSE 72–95; RESP 14–19; TEMP 100–105; O2SAT 93–100
[2016-11-19] MEDS: SODIUM BICARBONATE 8.4% INJ 150 MEQ in SODIUM CHLOR 0.9% 1000 ML INJ 850 ML IV SCH (01:57)
[2016-11-19] MEDS: hydrALAZINE HCL 20 MG/ML VIAL IV PUSH PRN ×2 (01:58→06:28)
[2016-11-19] MEDS: INSULIN NovoLIN REGULAR SUPPLEMENTAL SCALE SQ SCH ×3 (02:00→14:09)
[2016-11-19] MEDS: CHLORHEXIDINE GLUCONATE 2 % 1 PACK (2 CLOTHS) TOP SCH (04:00)
[2016-11-19] MEDS: RESP: ALBUTEROL 2.5 MG/IPRATROPIUM 0.5 MG NEB (SCH) INH ×4 (04:11→22:00)
[2016-11-19 04:30] LABS: HEMATOCRIT 29.2 % (39.0-51.0); MEAN CELL VOLUME 91.8 FL (80.0-100.0); MEAN CORPUSCULAR HEMOGLOBIN 31.2 PG (27.0-34.0); PLATELET COUNT 160 TH/MM3 (150-450); RED BLOOD COUNT 3.18 MIL/MM3 (4.50-5.90); REVIEW FLAG FINAL; WHITE BLOOD COUNT 15.6 TH/MM3 (4.0-11.0)
[2016-11-19 04:55] LABS: BICARBONATE 35.1 MEQ/L (21.0-32.0); MAGNESIUM 2.4 MG/DL (1.5-2.5); POTASSIUM 3.8 MEQ/L (3.5-5.1)
[2016-11-19 05:46] LABS: BLOOD GAS CARBOXYHEMOGLOBIN 1.6 % (0-4); BLOOD GAS HCO3 31 mmol/L (22-26); BLOOD GAS METHEMOGLOBIN 1.7 % (0-2); BLOOD GAS O2 HGB SATURATION 92 % (90-100); BLOOD GAS PCO2 52 mmHg (38-42); BLOOD GAS PO2 85 mmHg (61-120); CRITICAL VALUE YES; FIO2 35 %; OXYGEN DEVICE PRVC/AC; TEMP CORR TO 98.6
[2016-11-19 05:47] LABS: DRAW SITE ART LINE; STAT NO
--- NOTE | 2016-11-19 05:56 | RADRPT ---
EXAM DATE/TIME: 11/19/2016 05:01 [facility] COMPARISON: CHEST SINGLE AP, November 18, 2016, 4:02. INDICATIONS : Shortness of breath. MEDICAL HISTORY : None. SURGICAL HISTORY : None. ENCOUNTER: Subsequent ACUITY: 1 day PAIN SCORE: 0/10 LOCATION: Bilateral chest FINDINGS: There is bilateral lower lobe airspace disease. Cardiomegaly, sternotomy wires and clips are noted. E ndotracheal tube tip at the superior margin the clavicles. Enteric tube courses beneath the diaphragm , distal tip overlying the stomach. The right lung base nodular density has resolved. CONCLUSION: Right lung base nodular density has resolved otherwise stable. Garry Dykes MD on November 19, 2016 at 5:54 Board Certified Radiologist. This report was verified electronically.
[2016-11-19] MEDS ORDERED: CISATRACURIUM BESYLATE 20 MG/10 ML VIAL IV PUSH SCH (07:30)
[2016-11-19] MEDS: CHLORHEXIDINE 0.12% (ORAL KIT) 15 ML CUP MT SCH ×4 (08:00→20:00)
--- NOTE | 2016-11-19 08:42 | EKG ---
Date Performed: 11/18/2016 Time Performed: 09:01:34 PTAGE: 56 years EKG: Sinus rhythm Prolonged QT interval Possible anterolateral infarct - age undetermined Low QRS voltages in limb hollie ds Abnormal ECG PREVIOUS TRACING : 11/17/2016 15.23 DOCTOR: Gerard Crisostomo Interpretating Date/Time 11/19/2016 08:36:09
--- NOTE | 2016-11-19 08:50 | HHI.CCPN ---
Subjective Remarks/Hospital Course This is a Kilo Mendes who was found to be unresponsive by EVAC in agonal breathing and was found to be bradycardic while lying on his cough. As per EVAC, pt was then in PEA arrest and a total of 2 epinephrine given before they got ROSC. Pt was intubated by EVAC and had bilateral and equal breath sounds on arrival. Pt was later found to be a dialysis pt who last had his hemodialysis on Thursday and significant other who came later said he has not been feeling well and had trouble breathing. Pt was in sinus tachycardia and found to have ST segment elevation in V2-V4 and STEMI alert was called. Pt was unresponsive without any sedation. Pupils were fixed and unreactive to light bilaterally. 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 Mcmillan (process designer). The patient was transported to [facility] as a STEMI alert, seen by Dr. Grimes. The patient was deemed not a candidate for cardiac catheterization nor cooling secondary to unwitnessed initial arrest for unknown duration of time. Critical care medicine was consulted. The patient was transferred to CVICU on epinephrine infusion. Upon admission the patient was noted to have agonal respirations pupils fixed, nonresponsive to painful stimuli. Subjective: 11/18: Tmax 101.1 Hemodynamically stable. Sinus tachycardia resolved. Epinephrine weaned off last evening. The patient remains encephalopathic. Continued myoclonic jerking. EEG results revealed possible anoxic brain injury. Neurology consulted appreciate recommendations. Palliative care has been consulted. The patient was placed on low-dose propofol/fentanyl for ventilator synchrony. Nephrology was consulted patient possibly for dialysis today. Patient continues on heparin infusion, the patient was noted to be Hemoccult positive will monitor CBC and discontinue. 11/19: Tmax 102.1. The patient remains encephalopathic. Seen by neurology yesterday plan for EEG and repeat CT this a.m.. Extensive discussion with family regarding poor prognosis by neurology and food and drug research scientist. Objective Vital Signs Date Time Temp Pulse Resp B/P Pulse Ox O2 Delivery O2 Flow Rate FiO2 11/19/16 04:12 94 30 11/19/16 03:00 100.0 88 14 119/57 138/59 11/19/16 03:00 Mechanical Ventilator Intake and Output 11/18/16 11/18/1617 08:00 16:00 00:00 Intake Total 1385 ml 1143 ml Output Total 135 ml 4000 ml 77 ml Balance 1250 ml -4000 ml 1066 ml Result Diagram: 11/19/16 0415 11/19/16 0415 Other Results Microbiology Date/Time Procedure Status Source Growth 11/18/16 01:45 Stool Occult Blood (CANDIE) - Final Complete Stool Stool HEMOCCULT POSITIVE Laboratory Tests Test 11/19/16 05:40 Blood Gas Puncture Site ART LINE Blood Gas Patient Temperature 98.6 Blood Gas HCO3 31 mmol/L (22-26) Blood Gas Base Excess 6.0 mmol/L (-2-2) Blood Gas Oxygen Saturation 92 % (90-100) Arterial Blood pH 7.39 (7.380-7.420) Arterial Blood Partial 52 mmHg (38-42) Pressure CO2 Arterial Blood Partial 85 mmHg Pressure O2 (61-120) Arterial Blood Oxygen Content 13.0 Vol % (12.0-20.0) Arterial Blood 1.6 % (0-4) Carboxyhemoglobin Arterial Blood Methemoglobin 1.7 % (0-2) Blood Gas Hemoglobin 10.0 G/DL (12.0-16.0) Oxygen Delivery Device PRVC/AC Blood Gas Inspired Oxygen 35 % Imaging Last Impressions Head CT 11/17/16 0000 Signed Impressions: Service Date/Time: Thursday, November 17, 2016 15:31 - CONCLUSION: No evidence of acute infarct, hemorrhage, mass or edema. Immanuel Santos MD Chest X-Ray 11/17/16 0000 Signed Impressions: Service Date/Time: Thursday, November 17, 2016 15:31 - CONCLUSION: Previous bypass , cardiomegaly with mild interstitial edema suggesting congestive failure. Jason Sullivan MD FACR Objective Remarks GENERAL: Critically ill-appearing male with mild myoclonic jerking less pronounced today. SKIN: Warm and dry. HEAD: Atraumatic. Normocephalic. EYES: Pupils equal and round, nonreactive, 3 mm. No scleral icterus. No injection or drainage. ENT: No nasal bleeding or discharge. Mucous membranes pink and moist. NECK: Trachea midline. No JVD. CARDIOVASCULAR: Normal rate, regular rhythm. Telemetry-sinus rhythm RESPIRATORY: Mechanical ventilation No accessory muscle use. Clear to auscultation. Breath sounds equal bilaterally. Agonal respirations GASTROINTESTINAL: Abdomen soft, non-tender, nondistended. No guarding. MUSCULOSKELETAL: Extremities without clubbing, cyanosis, or edema. Left foot partial amputation. Left upper extremity AV graft with bruit and thrill NEUROLOGICAL: GCS 3 T. unresponsive. No withdrawal to pain. No lid or gag reflex Date of Insertion: Nov 17, 2016 A/P Assessment and Plan Assessment Postcardiac arrest (Unwitnessed) PEA arrest Anoxic brain injury End-stage renal disease Bandemia Leukocytosis Substance abuse Plan Neurologic: -11/17- EEG-markedly abnormal EEG, severe diffuse disturbance of cerebral function. Possible anoxic brain injury -Neurology consulted-Dr. Quintero -Urine tox screen- positive for Cannabinoids -11/17 CT brain-no acute infarct 11/[address] brain- follow-up results 11/20: Repeat EEGfollow-up results Respiratory: -Mechanical ventilation maintain sat greater than 92% currently on 500/6 FiO2 50 -11/19 ABG- 7.39/52/85/31/6 (bicarbonate infusion discontinued) -Wean FiO2 to maintain O2 sat greater than 92% -Ventilator bundle -Bronchodilators every 6 hours scheduled, every 2 hours Cardiovascular: -Cardiology Dr. Grimes- patient deemed not a candidate for heart catheterization nor hypothermic cooling - maintain a MAP greater than 65mmHG -Discontinue heparin infusion Renal: -Nephrology- Dr. Kennedy, hemodialysis per nephrology -Maintain payne- patient has oliguria -- Strict I/Os FEN/GI: -Monitor BMP - OGT to LIWS -Zofran for nausea -Pepcid GI prophylaxis Heme/ID: -Blood cultures 2 - Urine Culture -F/U sputum culture -Empiric antibiotics instituted vancomycin and cefepime Endocrine: Glucose monitoring per ICU protocol -- SSI Prophylaxis: GI Prophylaxis Pepcid twice a day DVT Prophylaxis -- SCDs Lines: Peripheral IVs 2 Dispo: 11/17: Extensive discussion with family regarding poor prognosis and probable anoxic brain injury. Weill await neurology recommendations for possible confirmation of diagnosis. I would've care team has been consulted. Initial discussions with family produced discussions regarding possible ventilator withdrawal dependent upon neurology consultation and recommendations. 11/18: Extensive discussion with patient's mother and sister regarding tentative plans for repeat EEG, and CT of the brain. Palliative care discussion with family patient CODE STATUS was made DNR 11/19: Plans for follow-up with Dr. smith regarding outcome of repeat CT brain in EEG, for family's determination of goals of care for the patient. This patient remains critically ill with one or more organ systems which are or may become a threat to life. I have spent in excess of 30 minutes discontinuously in the care and management of this patient. This time is exclusive of procedures, and includes, but is not limited to, evaluation of the patient, review of the medical record, discussions with family, consultants, nursing staff, or respiratory therapy, and documentation in the medical record. Physician Dai Mendoza MD Nov 19, 2016 08:50
[2016-11-19] MEDS: ASPIRIN 81 MG CHEW TAB CHEW SCH (08:53)
[2016-11-19] MEDS: ENALAPRIL MALEATE 2.5 MG TAB PO SCH (08:53)
[2016-11-19] MEDS: DOCUSATE SODIUM 50 MG/SENNA 8.6 MG TAB PO SCH ×2 (08:53→21:00)
[2016-11-19] MEDS: FUROSEMIDE 80 MG TAB PO SCH (08:53)
[2016-11-19] MEDS: METOPROLOL TARTRATE 25 MG TAB PO SCH ×2 (08:54→21:00)
[2016-11-19] MEDS: SODIUM CHLORIDE 0.9% FLUSH 10 ML FLUSH IV FLUSH SCH ×2 (09:03→21:54)
[2016-11-19] MEDS: FAMOTIDINE 20 MG/2 ML VIAL IV PUSH SCH ×2 (09:12→21:54)
--- NOTE | 2016-11-19 10:19 | PD.CARD.PN ---
Subjective Subjective Remarks Intubated. Unresponsive. Objective Medications Item Value Date Time Metoprolol 12.5 mg 11/18/16 0900 Tartrate Q12HR/PO 11/19/16 0854 (Lopressor) Enalapril Maleate 2.5 mg 11/18/16 0900 (Vasotec) DAILY/PO 11/19/16 0853 Aspirin 81 mg 11/18/16 0900 (Aspirin Chew) DAILY/CHEW 11/19/16 0853 Furosemide 80 mg 11/18/16 0900 (Lasix) DAILY/PO 11/19/16 0853 Vital Signs / I&O Vital Signs Date Time Temp Pulse Resp B/P Pulse Ox O2 Delivery O2 Flow Rate FiO2 11/19/16 08:47 94 35 11/19/16 04:12 94 30 11/19/16 03:00 100.0 88 14 119/57 97 138/59 11/19/16 03:00 87 11/19/16 03:00 30 11/19/16 03:00 Mechanical Ventilator 30 11/19/16 00:40 97 30 11/18/16 23:00 Mechanical Ventilator 30 11/18/16 23:00 30 11/18/16 23:00 100.0 86 16 147/78 96 152/81 11/18/16 23:00 89 11/18/16 20:45 95 30 11/18/16 19:00 100.3 83 14 126/58 96 132/55 11/18/16 19:00 89 11/18/16 19:00 Mechanical Ventilator 30 11/18/16 19:00 82 132/54 128/59 11/18/16 19:00 30 11/18/16 16:20 97 30 11/18/16 15:00 30 11/18/16 15:00 98 Mechanical Ventilator 30 11/18/16 15:00 99.9 93 25 167/68 98 174/65 11/18/16 15:00 93 11/18/16 13:30 98 30 11/18/16 11:00 100.9 87 29 116/59 99 127/59 11/18/16 11:00 86 11/18/16 11:00 97 Mechanical Ventilator 30 11/18/16 11:00 30 I/O 11/18/16 11/18/16 11/18/16 11/19/16 11/19/16 11/19/16 06:59 14:59 22:59 06:59 14:59 22:59 Intake Total 1385 ml 1143 ml 1051 ml Output Total 135 ml 4000 ml 77 ml 40 ml Balance 1250 ml -4000 ml 1066 ml 1011 ml Intake Oral 0 ml 0 ml IV Total 1385 ml 1143 ml 1051 ml Output Urine Total 85 ml 17 ml 15 ml Gastric Drainage Total 50 ml 60 ml 25 ml Hemodialysis 4000 ml # Bowel Movements 1 0 Physical Exam GENERAL: Well developed, thin. Intubated. HEENT: Jugular venous pressure is normal. CHEST: Lungs clear to auscultation anteriorly. CARDIAC: Regular rate and rhythm without S3, S4. I-II/ systolic murmur apex, LLSB. ABDOMEN: Soft, no hepatosplenomegaly. Bowel sounds present. EXTREMITIES: No clubbing, cyanosis, or edema. Laboratory Laboratory Tests Test 11/19/16 11/19/16 11/19/16 04:15 05:40 07:30 White Blood Count 15.6 TH/MM3 Red Blood Count 3.18 MIL/MM3 Hemoglobin 9.9 GM/DL Hematocrit 29.2 % Mean Corpuscular Volume 91.8 FL Mean Corpuscular Hemoglobin 31.2 PG Mean Corpuscular Hemoglobin 34.0 % Concent Red Cell Distribution Width 15.0 % Platelet Count 160 TH/MM3 Mean Platelet Volume 7.9 FL Sodium Level 141 MEQ/L Potassium Level 3.8 MEQ/L Chloride Level 99 MEQ/L Carbon Dioxide Level 35.1 MEQ/L Anion Gap 7 MEQ/L Blood Urea Nitrogen 42 MG/DL Creatinine 5.57 MG/DL Estimat Glomerular Filtration 11 ML/MIN Rate Random Glucose 188 MG/DL Calcium Level 7.5 MG/DL Phosphorus Level 6.2 MG/DL Magnesium Level 2.4 MG/DL Blood Gas Puncture Site ART LINE Blood Gas Patient Temperature 98.6 Blood Gas HCO3 31 mmol/L Blood Gas Base Excess 6.0 mmol/L Blood Gas Oxygen Saturation 92 % Arterial Blood pH 7.39 Arterial Blood Partial 52 mmHg Pressure CO2 Arterial Blood Partial 85 mmHg Pressure O2 Arterial Blood Oxygen Content 13.0 Vol % Arterial Blood 1.6 % Carboxyhemoglobin Arterial Blood Methemoglobin 1.7 % Blood Gas Hemoglobin 10.0 G/DL Oxygen Delivery Device PRVC/AC Blood Gas Inspired Oxygen 35 % Ammonia LESS THAN 10 MCMOL/L Assessment and Plan Problem List: (1) CAD (coronary artery disease) Assessment and Plan: History of CABG 2006. Status post probable anterior STEMI 11/17/[address] Grimes due to poor neurological status. Stable overnight. Cardiac enzymes suggestive of acute TN. His bypass grafts, including a TABOR to the LAD, were widely patent on cath 2013. Echo reportedly shows EF 35-40%. REC daily aspirin beta narciso, TORY-I as BP's tolerate will f/u PRN; please call if patient has significant neurological recovery (2) Ischemic cardiomyopathy Assessment and Plan: EF 45% by echo last year, now 35-40% by echo. Negative fluid balance past 24 hours. CHF suggested on admission CXR. Rec continue beta narciso, TORY-I, fluid removal with dialysis as needed. Code Status alternative code Discussed Condition With nurse Problem Qualifiers (1) CAD (coronary artery disease): Qualified Code: I25.10 - Coronary artery disease involving [place] coronary artery of [place] heart, angina presence unspecified Javier Mcmillan MD Nov 19, 2016 10:19
--- NOTE | 2016-11-19 11:29 | RADRPT ---
EXAM DATE/TIME: 11/19/2016 11:06 [facility] COMPARISON: CT BRAIN W/O CONTRAST, November 17, 2016, 15:31. INDICATIONS : Post code, anoxia. RADIATION DOSE: 34.50 CTDIvol (mGy) MEDICAL HISTORY : Non-responsive. SURGICAL HISTORY : Non-responsive. ENCOUNTER: Subsequent ACUITY: 2 days PAIN SCALE: Non-responsive LOCATION: cranial TECHNIQUE: Multiple contiguous axial images were obtained of the head. Using automated exposure control and adj ustment of the mA and/or kV according to patient size, radiation dose was kept as low as reasonably a chievable to obtain optimal diagnostic quality images. DICOM format image data is available electro nically for review and comparison. FINDINGS: There has been interval significant diffuse loss of ahumada-white differentiation worrisome for early di ffuse cerebral edema. No significant focal or regional effacement of cortical sulci. Ventricles are s table and symmetric. No brain shift. No evidence of mass or hemorrhage. The cranial structures are gr ossly stable. CONCLUSION: Loss of ahumada-white differentiation worrisome for developing edema Kilo Younger MD on November 19, 2016 at 11:24 Board Certified Radiologist. This report was verified electronically.
--- NOTE | 2016-11-19 12:24 | HHI.HCPN ---
Reason for visit a. To assist with evaluation and management of symptoms including: Pain, dyspnea, debility, encephalopathy b. To assist medical decision maker(s) with: better understanding of current medical conditions; weighing benefits/burdens of medical treatment options; making medical treatment decisions. . Subjective/Interval History Mr. Moore is a 56 year old male with ESRD on HD, CHF, CAD, HTN, ischemic heart disease, chronic anemia,DM, vascular disease, peripheral neuropathy who was admitted to [facility] on 11/17/2016 status post cardiac arrest [address] Grimes, cardiology, treated the patient conservatively secondary to his poor neurological status. 11/19/2016: Patient remains encephalopathic; intubated and sedated on mechanical ventilator. Tmax: 102.1 Blood cultures and sputum cultures are negative to date. Stable follow-up chest x-ray, right lung base nodular density has resolved. Patient was noted to be Hemoccult positive will monitor CBC. 11/19/16: WBC: 15.6, hemoglobin 9.9, hematocrit 29.2, platelets 160 Nephrology following s/p dialysis yesterday 11/18/2016 with 4 L removed. BUN: 82, creatinine 5.57, GFR 11 Neurology was consulted and evaluated the patient yesterday on 11/18/2016. Follow -up CT this morning showed loss of ahumada-white differentiation worrisome for developing edema. EEG pending. Family/friend interactions Spoke with patient's mother and significant other at bedside and privately. Update provided on patient's clinical condition, awaiting neurology's recommendations after follow-up CT scan and EEG before changing goals of care further. Advance Directives Living Will: Never completed Health Care Surrogate: Never completed Durable Power of Hydraulic Rock Drill Operator: Never completed Advance Directive Specifics Documented care wishes: No documented care wishes were completed. . Objective Vital Signs Date Time Temp Pulse Resp B/P Pulse Ox O2 Delivery O2 Flow Rate FiO2 11/19/16 11:23 100 100 11/19/16 11:00 100 100 11/19/16 08:47 94 35 11/19/16 04:12 94 30 11/19/16 03:00 100.0 88 14 119/57 97 138/59 11/19/16 03:00 87 11/19/16 03:00 30 11/19/16 03:00 Mechanical Ventilator 30 11/19/16 00:40 97 30 11/18/16 23:00 Mechanical Ventilator 30 11/18/16 23:00 30 11/18/16 23:00 100.0 86 16 147/78 96 152/81 11/18/16 23:00 89 11/18/16 20:45 95 30 11/18/16 19:00 100.3 83 14 126/58 96 132/55 11/18/16 19:00 89 11/18/16 19:00 Mechanical Ventilator 30 11/18/16 19:00 82 132/54 128/59 11/18/16 19:00 30 11/18/16 16:20 97 30 11/18/16 15:00 30 11/18/16 15:00 98 Mechanical Ventilator 30 11/18/16 15:00 99.9 93 25 167/68 98 174/65 11/18/16 15:00 93 11/18/16 13:30 98 30 Intake & Output 11/19/16 11/19/16 07:00 19:00 Intake Total 1051 ml Output Total 40 ml Balance 1011 ml IV Total 1051 ml Output Urine Total 15 ml Gastric Drainage Total 25 ml . Physical Exam CONSTITUTIONAL/GENERAL: This is a critically ill male patient who is intubated on mechanical ventilator TUBES/LINES/DRAINS: ETT, NGT, Rooney, PIV 2, AV fistula, soft restraints, R Carrasco SKIN: No jaundice, rashes, or lesions. Ecchymoses on upper extremities. No wounds seen anteriorly. Febrile. HEAD: Atraumatic. Normocephalic. EYES: Pupils are nonreactive. No scleral icterus. . Fundi not examined. ENT: Unable to assess hearing. Nose without bleeding or purulent drainage. NECK: Trachea midline. Supple, nontender. No palpable thyroid enlargement or nodularity. CARDIOVASCULAR: Regular rate and rhythm without murmurs, gallops, or rubs. No JVD. Peripheral pulses symmetric. RESPIRATORY/CHEST: Intubated on mechanical ventilator. Breath sounds diminished bilaterally. GASTROINTESTINAL: Abdomen soft, non-tender, nondistended. No hepato-splenomegaly , or palpable masses. No guarding. Bowel sounds present. GENITOURINARY: Without palpable bladder distension. Rooney catheter in place. MUSCULOSKELETAL: Extremities without clubbing, cyanosis. Bilateral upper extremity edema. LYMPHATICS: No palpable cervical or supraclavicular adenopathy. NEUROLOGICAL: Patient unresponsive to noxious stimuli, pupils nonreactive. PSYCHIATRIC: Unable to assess secondary to patient's clinical condition . Diagnostic Tests Laboratory Laboratory Tests Test 11/17/16 11/17/16 11/17/16 11/17/16 15:20 17:45 18:15 20:18 White Blood Count 17.5 TH/MM3 14.3 TH/MM3 (4.0-11.0) (4.0-11.0) Red Blood Count 3.93 MIL/MM3 3.85 MIL/MM3 (4.50-5.90) (4.50-5.90) Hemoglobin 12.0 GM/DL 12.0 GM/DL (13.0-17.0) (13.0-17.0) Hematocrit 36.6 % 36.5 % (39.0-51.0) (39.0-51.0) Mean Corpuscular Volume 93.2 FL 95.0 FL (80.0-100.0) (80.0-100.0) Mean Corpuscular Hemoglobin 30.7 PG 31.3 PG (27.0-34.0) (27.0-34.0) Mean Corpuscular Hemoglobin 32.9 % 32.9 % Concent (32.0-36.0) (32.0-36.0) Red Cell Distribution Width 14.9 % 15.2 % (11.6-17.2) (11.6-17.2) Platelet Count 272 TH/MM3 263 TH/MM3 (150-450) (150-450) Mean Platelet Volume 8.1 FL 8.0 FL (7.0-11.0) (7.0-11.0) Neutrophils (%) (Auto) % (16.0-70.0) Lymphocytes (%) (Auto) % (9.0-44.0) Monocytes (%) (Auto) % (0.0-8.0) Eosinophils (%) (Auto) % (0.0-4.0) Basophils (%) (Auto) % (0.0-2.0) Neutrophils # (Auto) TH/MM3 (1.8-7.7) Lymphocytes # (Auto) TH/MM3 (1.0-4.8) Monocytes # (Auto) TH/MM3 (0-0.9) Eosinophils # (Auto) TH/MM3 (0-0.4) Basophils # (Auto) TH/MM3 (0-0.2) CBC Comment AUTO DIFF Differential Total Cells 100 Counted Neutrophils % (Manual) 62 % (16-70) Band Neutrophils % 8 % (0-6) Lymphocytes % 19 % (9-44) Monocytes % 5 % (0-8) Eosinophils % 2 % (0-4) Neutrophils # (Manual) 13.0 TH/MM3 (1.8-7.7) Metamyelocytes 4 % (0-1) Differential Comment FINAL DIFF MANUAL Atypical Lymphocytes % (0-0) Platelet Estimate NORMAL (NORMAL) Platelet Morphology Comment NORMAL (NORMAL) Red Cell Morphology Comment NORMAL (NORMAL) Prothrombin Time 12.0 SEC 12.5 SEC (9.8-11.6) (9.8-11.6) Prothromb Time International 1.1 RATIO 1.1 RATIO Ratio Activated Partial 36.9 SEC 33.6 SEC Thromboplast Time (24.3-30.1) (24.3-30.1) Sodium Level 130 MEQ/L 131 MEQ/L (136-145) (136-145) Potassium Level 5.2 MEQ/L 4.7 MEQ/L (3.5-5.1) (3.5-5.1) Chloride Level 99 MEQ/L 96 MEQ/L (98-107) (98-107) Carbon Dioxide Level 13.9 MEQ/L 17.8 MEQ/L (21.0-32.0) (21.0-32.0) Anion Gap 17 MEQ/L (5-15) 17 MEQ/L (5-15) Blood Urea Nitrogen 44 MG/DL (7-18) 43 MG/DL (7-18) Creatinine 6.50 MG/DL 6.54 MG/DL (0.60-1.30) (0.60-1.30) Estimat Glomerular Filtration 7 ML/MIN (>89) 9 ML/MIN (>89) Rate Random Glucose 235 MG/DL 280 MG/DL (74-106) (74-106) Calcium Level 7.7 MG/DL 8.1 MG/DL (8.5-10.1) (8.5-10.1) Total Creatine Kinase 188 U/L 159 U/L (39-308) (39-308) Creatine Kinase MB 2.3 NG/ML (0.5-3.6) Troponin I 0.05 NG/ML (0.02-0.05) Lactic Acid Level 6.0 mmol/L 4.0 mmol/L (0.4-2.0) (0.4-2.0) Phosphorus Level 8.7 MG/DL (2.5-4.9) Magnesium Level 2.7 MG/DL (1.5-2.5) Total Bilirubin 0.6 MG/DL (0.2-1.0) Aspartate Amino Transf 37 U/L (15-37) (AST/SGOT) Alanine Aminotransferase 38 U/L (12-78) (ALT/SGPT) Alkaline Phosphatase 110 U/L (45-117) B-Type Natriuretic Peptide 2504 PG/ML (0-100) Total Protein 7.1 GM/DL (6.4-8.2) Albumin 3.6 GM/DL (3.4-5.0) Acetaminophen Level 7.3 MCG/ML (10.0-30.0) Urine Opiates Screen NEG (NEG) Urine Barbiturates Screen NEG (NEG) Urine Amphetamines Screen NEG (NEG) Urine Benzodiazepines Screen NEG (NEG) Urine Cocaine Screen NEG (NEG) Urine Cannabinoids Screen POS (NEG) Test 11/17/16 11/17/16 11/18/16 11/18/16 21:20 22:50 01:45 04:30 Blood Gas Puncture Site ART LINE Blood Gas Patient Temperature 98.6 Blood Gas HCO3 15 mmol/L (22-26) Blood Gas Base Excess -10.0 mmol/L (-2-2) Blood Gas Oxygen Saturation 96 % (90-100) Arterial Blood pH 7.33 (7.380-7.420) Arterial Blood Partial 29 mmHg (38-42) Pressure CO2 Arterial Blood Partial 207 mmHg Pressure O2 (61-120) Arterial Blood Oxygen Content 14.7 Vol % (12.0-20.0) Arterial Blood 1.2 % (0-4) Carboxyhemoglobin Arterial Blood Methemoglobin 1.7 % (0-2) Blood Gas Hemoglobin 10.5 G/DL (12.0-16.0) Oxygen Delivery Device VENTILATOR Blood Gas Ventilator Setting 500/12/PEEP 6 Blood Gas Inspired Oxygen 70 % Nasal Screen MRSA (PCR) MRSA NOT DETECTED (NOT DETECT) Activated Partial 46.3 SEC Thromboplast Time (24.3-30.1) Sodium Level 138 MEQ/L (136-145) Potassium Level 4.3 MEQ/L (3.5-5.1) Chloride Level 100 MEQ/L (98-107) Carbon Dioxide Level 22.8 MEQ/L (21.0-32.0) Anion Gap 15 MEQ/L (5-15) Blood Urea Nitrogen 56 MG/DL (7-18) Creatinine 7.08 MG/DL (0.60-1.30) Estimat Glomerular Filtration 8 ML/MIN (>89) Rate Random Glucose 184 MG/DL (74-106) Calcium Level 7.5 MG/DL (8.5-10.1) Phosphorus Level 4.3 MG/DL (2.5-4.9) Magnesium Level 2.3 MG/DL (1.5-2.5) Total Creatine Kinase 579 U/L (39-308) Creatine Kinase MB 18.4 NG/ML (0.5-3.6) Creatine Kinase MB % 3.2 % (0.0-4.0) Test 11/18/16 11/18/16 11/19/16 11/19/16 05:10 08:00 04:15 05:40 Blood Gas Puncture Site ART LINE ART LINE Blood Gas Patient Temperature 98.6 98.6 Blood Gas HCO3 19 mmol/L 31 mmol/L (22-26) (22-26) Blood Gas Base Excess -3.9 mmol/L 6.0 mmol/L (-2-2) (-2-2) Blood Gas Oxygen Saturation 95 % (90-100) 92 % (90-100) Arterial Blood pH 7.46 7.39 (7.380-7.420) (7.380-7.420) Arterial Blood Partial 28 mmHg (38-42) 52 mmHg (38-42) Pressure CO2 Arterial Blood Partial 121 mmHg 85 mmHg Pressure O2 (61-120) (61-120) Arterial Blood Oxygen Content 13.4 Vol % 13.0 Vol % (12.0-20.0) (12.0-20.0) Arterial Blood 1.4 % (0-4) 1.6 % (0-4) Carboxyhemoglobin Arterial Blood Methemoglobin 1.7 % (0-2) 1.7 % (0-2) Blood Gas Hemoglobin 9.9 G/DL 10.0 G/DL (12.0-16.0) (12.0-16.0) Oxygen Delivery Device VENTILATOR PRVC/AC Blood Gas Ventilator Setting PRVC/AC Blood Gas Inspired Oxygen 30 % 35 % White Blood Count 17.2 TH/MM3 15.6 TH/MM3 (4.0-11.0) (4.0-11.0) Red Blood Count 3.18 MIL/MM3 3.18 MIL/MM3 (4.50-5.90) (4.50-5.90) Hemoglobin 9.6 GM/DL 9.9 GM/DL (13.0-17.0) (13.0-17.0) Hematocrit 29.5 % 29.2 % (39.0-51.0) (39.0-51.0) Mean Corpuscular Volume 92.8 FL 91.8 FL (80.0-100.0) (80.0-100.0) Mean Corpuscular Hemoglobin 30.0 PG 31.2 PG (27.0-34.0) (27.0-34.0) Mean Corpuscular Hemoglobin 32.4 % 34.0 % Concent (32.0-36.0) (32.0-36.0) Red Cell Distribution Width 14.7 % 15.0 % (11.6-17.2) (11.6-17.2) Platelet Count 154 TH/MM3 160 TH/MM3 (150-450) (150-450) Mean Platelet Volume 8.4 FL 7.9 FL (7.0-11.0) (7.0-11.0) Neutrophils (%) (Auto) 93.5 % (16.0-70.0) Lymphocytes (%) (Auto) 2.4 % (9.0-44.0) Monocytes (%) (Auto) 4.0 % (0.0-8.0) Eosinophils (%) (Auto) 0.0 % (0.0-4.0) Basophils (%) (Auto) 0.1 % (0.0-2.0) Neutrophils # (Auto) 16.1 TH/MM3 (1.8-7.7) Lymphocytes # (Auto) 0.4 TH/MM3 (1.0-4.8) Monocytes # (Auto) 0.7 TH/MM3 (0-0.9) Eosinophils # (Auto) 0.0 TH/MM3 (0-0.4) Basophils # (Auto) 0.0 TH/MM3 (0-0.2) CBC Comment DIFF FINAL Differential Comment Activated Partial 50.4 SEC Thromboplast Time (24.3-30.1) Sodium Level 141 MEQ/L (136-145) Potassium Level 3.8 MEQ/L (3.5-5.1) Chloride Level 99 MEQ/L (98-107) Carbon Dioxide Level 35.1 MEQ/L (21.0-32.0) Anion Gap 7 MEQ/L (5-15) Blood Urea Nitrogen 42 MG/DL (7-18) Creatinine 5.57 MG/DL (0.60-1.30) Estimat Glomerular Filtration 11 ML/MIN (>89) Rate Random Glucose 188 MG/DL (74-106) Calcium Level 7.5 MG/DL (8.5-10.1) Phosphorus Level 6.2 MG/DL (2.5-4.9) Magnesium Level 2.4 MG/DL (1.5-2.5) Test 11/19/16 07:30 Ammonia LESS THAN 10 MCMOL/L (11-32) . Result Diagram: 11/19/16 0415 11/19/16 0415 Microbiology Microbiology Date/Time Procedure Status Source Growth 11/17/16 18:12 Gram Stain Received Sputum Endotracheal Pending 11/17/16 18:12 Sputum Culture Received Sputum Endotracheal Pending 11/17/16 20:12 Aerobic Blood Culture - Preliminary Resulted Blood Peripheral NO GROWTH IN 2 DAYS 11/17/16 20:12 Anaerobic Blood Culture - Preliminary Resulted Blood Peripheral NO GROWTH IN 2 DAYS 11/17/16 20:18 Aerobic Blood Culture - Preliminary Resulted Blood Peripheral NO GROWTH IN 2 DAYS 11/17/16 20:18 Anaerobic Blood Culture - Preliminary Resulted Blood Peripheral NO GROWTH IN 2 DAYS 11/17/16 22:45 Gram Stain - Final Resulted Sputum Endotracheal 11/17/16 22:45 Sputum Culture - Preliminary Resulted Sputum Endotracheal IMMATURE GROWTH - REINCUBATE 11/18/16 01:45 Stool Occult Blood (CANDIE) - Final Complete Stool Stool HEMOCCULT POSITIVE . Imaging Last 72 hours Impressions Chest X-Ray 11/19/16 0600 Signed Impressions: Service Date/Time: Saturday, November 19, 2016 05:01 - CONCLUSION: Right lung base nodular density has resolved otherwise stable. Garry Dykes MD Head CT 11/19/16 0000 Signed Impressions: Service Date/Time: Saturday, November 19, 2016 11:06 - CONCLUSION: Loss of ahumada-white differentiation worrisome for developing edema Kilo Younger MD Chest X-Ray 11/18/16 0600 Signed Impressions: Service Date/Time: Friday, November 18, 2016 04:02 - CONCLUSION: Bilateral consolidation decreased since the previous study. Right lung base nodule suspected. NG tube should be advanced. Garry Dykes MD Head CT 11/17/16 0000 Signed Impressions: Service Date/Time: Thursday, November 17, 2016 15:31 - CONCLUSION: No evidence of acute infarct, hemorrhage, mass or edema. Immanuel Santos MD Chest X-Ray 11/17/16 0000 Signed Impressions: Service Date/Time: Thursday, November 17, 2016 15:31 - CONCLUSION: Previous bypass , cardiomegaly with mild interstitial edema suggesting congestive failure. Jason Sullivan MD FACR . Procedures 11/17/2016: Intubation 11/17/2016: Arterial line placement 11/17/2016: NGT 11/18/16 EEG . Assessment and Plan Disease Oriented Problem List: (1) CAD (coronary artery disease) (2) Ischemic cardiomyopathy (3) Encephalopathy acute (4) STEMI (ST elevation myocardial infarction) (5) End-stage renal disease on hemodialysis (6) Chronic anemia (7) Ischemic heart disease (8) CHF (congestive heart failure) (9) Diabetes Symptom Scale: (1) Pain (2) Debility (3) Dyspnea (4) Encephalopathy Pertinent Non-Medical Issues Psychosocial: Patient is originally from [place]. He has 2 sisters. Rhianna lives locally and Clary lives in [place]. Patient's mother, Rose also lives in [place]. Patient moved to [place] approximately 20 years ago. He has never been and has no children, but he has been with his significant other Amy for 24+ years. 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 Spiritual: Patient was raised Zoroastrian Legal: Per [place] statutes, in the absence of written advanced directives healthcare proxy decision-making falls to the patient's . Ethical issues impacting care: No known ethical issues impacting care at this time. . Important Contacts Rose Moore, mother: [phone] Amy Leigh, significant other: [phone] . Prognosis Patient is a 56 year old male status post cardiac arrest 2 and STEMI. EEG on was abnormal showing severe diffuse disturbance of cerebral function, possible anoxic brain injury. Patient remains critically ill with multiple organ dysfunction. Prognosis is poor. Code Status: Alternative Code (intubation only) Plan DRAFT.. * Alternate CODEintubation only * Decision making: Per [place] statutes, in the absence of written advanced directives healthcare proxy decision-making falls to the patient's mother * Goals: Goals are aggressive up to the point of cardiopulmonary resuscitation * Discussed with Dr. Curry and patient's nurse. * Patient's family verbalizing an understanding that the patient is critically ill. Patient's mother states the patient would not want to live on a machine. * Symptom managementencephalopathy: Neurology was consulted and evaluated the patient yesterday on 11/18/2016. Follow-up CT this morning showed loss of ahumada- white differentiation worrisome for developing edema. EEG pending. * Symptom management disability: Patient is disabled secondary to his DM s/p left foot amputation, significant cardiac disease and ESRD. They state the patient's decline began 20 + years ago when he was first diagnosed with DM and he has progressively worsened over the years. The patient's states the patient was "miserable" and his quality of life was poor prior to this hospitalization. No recommendations. * Met with patient's mother and significant other at bedside and privately to provide an update on the patient's clinical condition. Questions answered to the best of my ability. * Palliative care will continue to follow this patient throughout his hospitalization to establish trust, assist with symptom management and clarification of medical treatment goals. . . Attestation To help prompt me to consider important information that might be impacting today's encounter and assessment, information from prior notes written by myself or my colleagues may have been "brought forward" into today's note. My signature on this note, however, is an attestation that I personally performed the exam, history, and/or decision-making noted today, and, unless otherwise indicated, the interactions with patient, family, and staff as well as the review of records all occurred today. I also attest that the listed assessment and stated plan reflect my best clinical judgment today based on the combination of historical information, prior notes, and today's exam/ interactions. When time spent is documented, it refers only to time spent today by the signer, or if indicated, combined time spent today by collaborating physician/nurse practitioner. . Irina Shelby Nov 19, 2016 12:24
[2016-11-19] MEDS ORDERED: LORazepam 2 MG/ML VIAL IV ONE ×2 (15:45→23:15)
[2016-11-19] MEDS ORDERED: ACETAMINOPHEN 650 MG SUPP RECTAL PRN (15:45)
--- NOTE | 2016-11-19 15:48 | HHI.PR ---
Subjective Remarks no change in neurostatus Objective Vital Signs Date Time Temp Pulse Resp B/P Pulse Ox O2 Delivery O2 Flow Rate FiO2 11/19/16 11:23 100 100 11/19/16 11:00 100 100 11/19/16 08:47 94 35 11/19/16 07:00 89 117/55 122/46 11/19/16 07:00 100.1 89 16 117/55 93 122/46 11/19/16 04:12 94 30 11/19/16 03:00 100.0 88 14 119/57 97 138/59 11/19/16 03:00 87 11/19/16 03:00 30 11/19/16 03:00 Mechanical Ventilator 30 11/19/16 00:40 97 30 11/18/16 23:00 Mechanical Ventilator 30 11/18/16 23:00 30 11/18/16 23:00 100.0 86 16 147/78 96 152/81 11/18/16 23:00 89 11/18/16 20:45 95 30 11/18/16 19:00 100.3 83 14 126/58 96 132/55 11/18/16 19:00 89 11/18/16 19:00 Mechanical Ventilator 30 11/18/16 19:00 82 132/54 128/59 11/18/16 19:00 30 11/18/16 16:20 97 30 I/O 11/18/16 11/18/16 11/18/16 11/19/16 11/19/16 11/19/16 06:59 14:59 22:59 06:59 14:59 22:59 Intake Total 1385 ml 1143 ml 1051 ml Output Total 135 ml 4000 ml 77 ml 40 ml Balance 1250 ml -4000 ml 1066 ml 1011 ml Intake Oral 0 ml 0 ml IV Total 1385 ml 1143 ml 1051 ml Output Urine Total 85 ml 17 ml 15 ml Gastric Drainage Total 50 ml 60 ml 25 ml Hemodialysis 4000 ml # Bowel Movements 1 0 Result Diagram: 11/19/1641411/19/16414 Objective Remarks intubated vent no sedation since 6am overbreaths the vent by 6 pinpoint nr pupils no corneals no ocr. no w/d to pain not following commands right toe neutral eeg abnl due to significant cerebral dysfunction no sz's. ct brain decreased [place] white differentiation with developing edema. 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 palliative on the the case. Kierra Quintero MD Nov 19, 2016 15:48
--- NOTE | 2016-11-19 17:20 | HHI.HCPN ---
Palliative care collaborated with Dr. Curry this afternoon, and then met with the patient's extended family again. The medical team agrees the patient's prognosis is extremely poor for any neurological recovery. Patient completed a living will on 10/31/15. Copies have been placed and the patient's paper chart and were faxed to HIM to be scanned into the patient's EMR. The patient's family is in agreement that the patient would not want to be kept alive on machines; they have decided to proceed with compassionate withdrawal of artificial life support tomorrow afternoon 11/20/2016. Exhibits B and C have been printed and placed on the patient's chart. . Irina Shelby Nov 19, 2016 17:19
--- NOTE | 2016-11-19 17:29 | HHI.NPPN ---
Subjective General Problems: Anemia, Hypertension Renal Failure: End Stage Renal Disease History of Present Illness 56-year-old male known to me from before with a past medical history of hypertension, diabetes mellitus, ischemic heart disease, congestive heart failure, chronic anemia, end-stage renal disease on hemodialysis two times per week who was brought to the hospital because of unresponsiveness. I was called to see the patient for the management of dialysis. Additional Remarks Patient remain on the vent. and unresponsive, clinically same. Objective Data Data 11/18/16 11/19/16 19:00 07:00 Intake Total 1143 ml 1051 ml Output Total 4077 ml 40 ml Balance -2934 ml 1011 ml Intake Oral 0 ml IV Total 1143 ml 1051 ml Output Urine Total 17 ml 15 ml Gastric Drainage Total 60 ml 25 ml Hemodialysis 4000 ml # Bowel Movements 0 Vital Signs Date Time Temp Pulse Resp B/P Pulse Ox O2 Delivery O2 Flow Rate FiO2 11/19/16 16:45 93 35 11/19/16 15:41 20 11/19/16 11:23 100 100 11/19/16 11:00 100 100 11/19/16 08:47 94 35 11/19/16 07:00 89 117/55 122/46 11/19/16 07:00 100.1 89 16 117/55 93 122/46 11/19/16 07:00 93 Mechanical Ventilator 30 11/19/16 07:00 30 11/19/16 04:12 94 30 11/19/16 03:00 100.0 88 14 119/57 97 138/59 11/19/16 03:00 87 11/19/16 03:00 30 11/19/16 03:00 Mechanical Ventilator 30 11/19/16 00:40 97 30 11/18/16 23:00 Mechanical Ventilator 30 11/18/16 23:00 30 11/18/16 23:00 100.0 86 16 147/78 96 152/81 11/18/16 23:00 89 11/18/16 20:45 95 30 11/18/16 19:00 100.3 83 14 126/58 96 132/55 11/18/16 19:00 89 11/18/16 19:00 Mechanical Ventilator 30 11/18/16 19:00 82 132/54 128/59 11/18/16 19:00 30 -: 11/19/16 0415 11/19/16 0415 Physical Exam General Appearance Remarks Intubated and unresponsive. Eyes Eye Remarks Pupil mid constrictive, non reactive, no corneal reflex. Throat Throat Exam: Oral Mucosa [place] & Moist Neck Neck Exam: Neck Supple, Trachea Midline Pulmonary Resp Exam: Breath Sounds Equal, No Distress, Decreased Bases Cardiology CV Exam: Regular, Normal Sinus Rhythm Gastrointestinal/Abdomen GI Exam: Soft, Non-Tender, Bowel Sounds Present Extremeties Extremities Exam: Trace Edema Neurologic Neuro Exam: Obtunded, Unresponsive Assessment/Plan Assessment Summary: Anemia of CKD, Hypertension, Diabetes Mellitus, End Stage Renal Disease Problem List: (1) STEMI (ST elevation myocardial infarction) (2) CAD (coronary artery disease) (3) Ischemic cardiomyopathy (4) Encephalopathy acute (5) End-stage renal disease on hemodialysis Plan Patient was seen by Neurology, possibly has Hypoxic encephalopathy, result of EEG noted. HD done yesterday. Patient has repeat CT of Brain done, has developing Brain edema. Family is waiting for other members and possible withdrawal tomorrow afternoon. Problem Qualifiers (1) STEMI (ST elevation myocardial infarction): Qualified Code: I21.3 - ST elevation myocardial infarction (STEMI), unspecified artery (2) CAD (coronary artery disease): Qualified Code: I25.10 - Coronary artery disease involving [place] coronary artery of [place] heart, angina presence unspecified Pepper Kennedy MD Nov 19, 2016 17:29
[2016-11-19] MEDS: CEFEPIME INJ 2,000 MG in SODIUM CHLORIDE 0.9% INJ 100 ML IV SCH ×2 (20:00→21:54)
--- NOTE | 2016-11-19 22:05 | MG ---
cc: KRISTAL GONSALEZ M.D. Lab No: Date: 11/19/2016 Age: Sex: M Race: REQUESTING PHYSICIAN Dr. Quintero. An EEG was obtained on this 56-year-old patient history of being intubated, no sedation for several hours. Nimbex given for the EEG. DESCRIPTION The EEG shows low amplitude rhythms. Indeed the ____ has to be raised due to the markedly low amplitude recording features. There is some beta activity that could be of brain origin but also could be artifactual. Essentially there is no EEG change throughout until the electrodes are touched and the expected artifact is seen. Photic stimulation shows some possible photomyoclonus response of very low amplitude. INTERPRETATION Markedly abnormal EEG because of markedly low amplitude EEG activity. This activity is indeed a questionable brain origin activity. No epileptiform features present. Clinical correlation. MD JOSE ANTONIO Peguero/RAVINDRA /9:38 PM /9:58 PM
[2016-11-19] MEDS ORDERED: HYDROmorphone HCL PF 2 MG/ML VIAL IV PUSH PRN (23:15)
[2016-11-19] MEDS ORDERED: HYDROmorphone HCL PF 2 MG/ML VIAL IV PUSH ONE ×2 (23:15)
[2016-11-19] MEDS ORDERED: MORPHINE SULFATE 4 MG/ML INJ IV PRN (23:15)
[2016-11-19] MEDS ORDERED: LORazepam 2 MG/ML VIAL IV PRN (23:15)
--- NOTE | 2016-11-20 03:08 | HHI.DS ---
Summary Note Date of : Nov 19, 2016 Time Of : 2344 Admission Date Nov 17, 2016 at 16:18 Admitting Diagnosis STEMI, post cardiac arrest Diagnosis at Time of : Brief History HPI This is a Kilo Mendes who was found to be unresponsive by EVAC in agonal breathing and was found to be bradycardic while lying on his cough. As per EVAC, pt was then in PEA arrest and a total of 2 epinephrine given before they got ROSC. Pt was intubated by EVAC and had bilateral and equal breath sounds on arrival. Pt was later found to be a dialysis pt who last had his hemodialysis on Thursday and significant other who came later said he has not been feeling well and had trouble breathing. Pt was in sinus tachycardia and found to have ST segment elevation in V2-V4 and STEMI alert was called. Pt was unresponsive without any sedation. Pupils were fixed and unreactive to light bilaterally. 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 Mcmillan (bacteriologist food). The patient was transported to [facility] as a STEMI alert, seen by Dr. Grimes. The patient was deemed not a candidate for cardiac catheterization nor cooling secondary to unwitnessed initial arrest for unknown duration of time. Critical care medicine was consulted. The patient was transferred to CVICU on epinephrine infusion. Upon admission the patient was noted to have agonal respirations pupils fixed, nonresponsive to painful stimuli. Allergies-Medications (Allergen,Severity, Reaction): Coded Allergies: UNOBTAINABLE (Unverified , 11/17/16) Review of Systems ROS Limitations: Unresponsive CBC/BMP: 11/19/16 0415 11/19/16 0415 Significant Findings Laboratory Tests Test 11/17/16 11/17/16 11/17/16 11/17/16 15:20 17:45 18:15 20:18 White Blood Count 17.5 TH/MM3 14.3 TH/MM3 (4.0-11.0) (4.0-11.0) Red Blood Count 3.93 MIL/MM3 3.85 MIL/MM3 (4.50-5.90) (4.50-5.90) Hemoglobin 12.0 GM/DL 12.0 GM/DL (13.0-17.0) (13.0-17.0) Hematocrit 36.6 % 36.5 % (39.0-51.0) (39.0-51.0) Band Neutrophils % 8 % (0-6) Neutrophils # (Manual) 13.0 TH/MM3 (1.8-7.7) Metamyelocytes 4 % (0-1) Prothrombin Time 12.0 SEC 12.5 SEC (9.8-11.6) (9.8-11.6) Activated Partial 36.9 SEC 33.6 SEC Thromboplast Time (24.3-30.1) (24.3-30.1) Sodium Level 130 MEQ/L 131 MEQ/L (136-145) (136-145) Potassium Level 5.2 MEQ/L (3.5-5.1) Carbon Dioxide Level 13.9 MEQ/L 17.8 MEQ/L (21.0-32.0) (21.0-32.0) Anion Gap 17 MEQ/L (5-15) 17 MEQ/L (5-15) Blood Urea Nitrogen 44 MG/DL (7-18) 43 MG/DL (7-18) Creatinine 6.50 MG/DL 6.54 MG/DL (0.60-1.30) (0.60-1.30) Estimat Glomerular Filtration 7 ML/MIN (>89) 9 ML/MIN (>89) Rate Random Glucose 235 MG/DL 280 MG/DL (74-106) (74-106) Calcium Level 7.7 MG/DL 8.1 MG/DL (8.5-10.1) (8.5-10.1) Chloride Level 96 MEQ/L (98-107) Lactic Acid Level 6.0 mmol/L 4.0 mmol/L (0.4-2.0) (0.4-2.0) Phosphorus Level 8.7 MG/DL (2.5-4.9) Magnesium Level 2.7 MG/DL (1.5-2.5) B-Type Natriuretic Peptide 2504 PG/ML (0-100) Acetaminophen Level 7.3 MCG/ML (10.0-30.0) Urine Cannabinoids Screen POS (NEG) Test 11/17/16 11/18/16 11/18/16 11/18/16 21:20 01:45 04:30 05:10 Blood Gas HCO3 15 mmol/L 19 mmol/L (22-26) (22-26) Blood Gas Base Excess -10.0 mmol/L -3.9 mmol/L (-2-2) (-2-2) Arterial Blood pH 7.33 7.46 (7.380-7.420) (7.380-7.420) Arterial Blood Partial 29 mmHg (38-42) 28 mmHg (38-42) Pressure CO2 Arterial Blood Partial 207 mmHg 121 mmHg Pressure O2 (61-120) (61-120) Blood Gas Hemoglobin 10.5 G/DL 9.9 G/DL (12.0-16.0) (12.0-16.0) Activated Partial 46.3 SEC Thromboplast Time (24.3-30.1) Blood Urea Nitrogen 56 MG/DL (7-18) Creatinine 7.08 MG/DL (0.60-1.30) Estimat Glomerular Filtration 8 ML/MIN (>89) Rate Random Glucose 184 MG/DL (74-106) Calcium Level 7.5 MG/DL (8.5-10.1) Total Creatine Kinase 579 U/L (39-308) Creatine Kinase MB 18.4 NG/ML (0.5-3.6) Test 11/18/16 11/19/16 11/19/16 11/19/16 08:00 04:15 05:40 07:30 White Blood Count 17.2 TH/MM3 15.6 TH/MM3 (4.0-11.0) (4.0-11.0) Red Blood Count 3.18 MIL/MM3 3.18 MIL/MM3 (4.50-5.90) (4.50-5.90) Hemoglobin 9.6 GM/DL 9.9 GM/DL (13.0-17.0) (13.0-17.0) Hematocrit 29.5 % 29.2 % (39.0-51.0) (39.0-51.0) Neutrophils (%) (Auto) 93.5 % (16.0-70.0) Lymphocytes (%) (Auto) 2.4 % (9.0-44.0) Neutrophils # (Auto) 16.1 TH/MM3 (1.8-7.7) Lymphocytes # (Auto) 0.4 TH/MM3 (1.0-4.8) Activated Partial 50.4 SEC Thromboplast Time (24.3-30.1) Carbon Dioxide Level 35.1 MEQ/L (21.0-32.0) Blood Urea Nitrogen 42 MG/DL (7-18) Creatinine 5.57 MG/DL (0.60-1.30) Estimat Glomerular Filtration 11 ML/MIN (>89) Rate Random Glucose 188 MG/DL (74-106) Calcium Level 7.5 MG/DL (8.5-10.1) Phosphorus Level 6.2 MG/DL (2.5-4.9) Blood Gas HCO3 31 mmol/L (22-26) Blood Gas Base Excess 6.0 mmol/L (-2-2) Arterial Blood Partial 52 mmHg (38-42) Pressure CO2 Blood Gas Hemoglobin 10.0 G/DL (12.0-16.0) Ammonia LESS THAN 10 MCMOL/L (11-32) Imaging Last Impressions Head CT 11/17/16 0000 Signed Impressions: Service Date/Time: Thursday, November 17, 2016 15:31 - CONCLUSION: No evidence of acute infarct, hemorrhage, mass or edema. Immanuel Santos MD Chest X-Ray 11/17/16 0000 Signed Impressions: Service Date/Time: Thursday, November 17, 2016 15:31 - CONCLUSION: Previous bypass , cardiomegaly with mild interstitial edema suggesting congestive failure. Jason Sullivan MD [facility] Course This is a Kilo Mendes who was found to be unresponsive by EVAC in agonal breathing and was found to be bradycardic while lying on his cough. As per EVAC, pt was then in PEA arrest and a total of 2 epinephrine given before they got ROSC. Pt was intubated by EVAC and had bilateral and equal breath sounds on arrival. Pt was later found to be a dialysis pt who last had his hemodialysis on Thursday and significant other who came later said he has not been feeling well and had trouble breathing. Pt was in sinus tachycardia and found to have ST segment elevation in V2-V4 and STEMI alert was called. Pt was unresponsive without any sedation. Pupils were fixed and unreactive to light bilaterally. 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 Mcmillan (bacteriologist food). The patient was transported to [facility] as a STEMI alert, seen by Dr. Grimes. The patient was deemed not a candidate for cardiac catheterization nor cooling secondary to unwitnessed initial arrest for unknown duration of time. Critical care medicine was consulted. The patient was transferred to CVICU on epinephrine infusion. Upon admission the patient was noted to have agonal respirations pupils fixed, nonresponsive to painful stimuli. Subjective: 11/18: Tmax 101.1 Hemodynamically stable. Sinus tachycardia resolved. Epinephrine weaned off last evening. The patient remains encephalopathic. Continued myoclonic jerking. EEG results revealed possible anoxic brain injury. Neurology consulted appreciate recommendations. Palliative care has been consulted. The patient was placed on low-dose propofol/fentanyl for ventilator synchrony. Nephrology was consulted patient possibly for dialysis today. Patient continues on heparin infusion, the patient was noted to be Hemoccult positive will monitor CBC and discontinue. 11/19: Tmax 102.1. The patient remains encephalopathic. Seen by neurology yesterday plan for EEG and repeat CT this a.m.. Extensive discussion with family regarding poor prognosis by neurology and medical aides teacher. Family all at bedside tonight and elected to proceed with withdraw of care. terminally extubated. Garrett Nuno MD Nov 20, 2016 03:08
== END 2016-11-19 23:45 | disposition expired ==
LOC: PHED 15:24 → HCVR 16:18
PROVIDERS: ADMIT Anesthesiology; ATTEND Anesthesiology
PROC: 5A12012 Performance of Cardiac Output, Single, Manual (ICD-10-PCS; principal; 2016-11-17)
PROC: 03HY32Z Insertion of Monitoring Device into Upper Artery, Percutaneous Approach (ICD-10-PCS; 2016-11-17)
PROC: 5A1945Z Respiratory Ventilation, 24-96 Consecutive Hours (ICD-10-PCS; 2016-11-17)
PROC: 5A1D00Z (ICD-10-PCS; 2016-11-18)
DX: I21.09 ST elevation (STEMI) myocardial infarction involving other coronary artery of anterior wall (principal); N18.6 End stage renal disease; I46.9 Cardiac arrest, cause unspecified; G93.6 Cerebral edema; G93.1 Anoxic brain damage, not elsewhere classified; I12.0 Hypertensive chronic kidney disease with stage 5 chronic kidney disease or end stage renal disease; E87.2 Acidosis; I50.9 Heart failure, unspecified; Z99.2 Dependence on renal dialysis; I25.10 Atherosclerotic heart disease of native coronary artery without angina pectoris; E11.22 Type 2 diabetes mellitus with diabetic chronic kidney disease; Z95.1 Presence of aortocoronary bypass graft; I25.5 Ischemic cardiomyopathy; Z66 Do not resuscitate; Z51.5 Encounter for palliative care; D64.9 Anemia, unspecified; Z89.432 Acquired absence of left foot
CPT/HCPCS: 70450; 71010; 76937; 80048; 80053; 80307; 82140; 82272; 82550; 82552; 82805; 82948; 83605; 83735; 83880; 84100; 84484; 85007; 85025; 85027; 85610; 85730; 86403; 87040; 87070; 87205; 87641; 90935; 93005; 93306; 94002; 94003; 94640; 94664; 95819; J0171; J0360; J0692; J1170; J1265; J1644; J2060; J3010; J3370; J7030; J7050; J7060